=== PATIENT | female | born 1930 | race Caucasian/White ===

== ENCOUNTER → 2017-07-20 | Outpatient (CLI) | payer OTHER ==
[~2017-07-20] MED LIST: ASPI-113 PO; CALCIUM LACTATE PO; CARDIO PLUS PO; CLOP1TAB15 PO; COQ 10 PO; HYDC25 PO; IRON PO; TUNA OMEGA 3 OIL PO; VITAMIN D PO; [UNRECOGNIZED DRUG - OTHER] PO; [UNRECOGNIZED DRUG - REMARK]
[2017-07-20 15:40] LABS: BASO % 0.5 %; BASO ABS # 0.05 K/uL (0-0.2); EOS % 2.4 %; EOS ABS # 0.23 K/uL (0-0.5); HEMATOCRIT 34.1 % (37-47); HEMOGLOBIN 10.7 g/dL (12.0-16.0); IG# 0.02 K/uL (0.00-0.02); LYMPH % 27.1 %; LYMPH ABS # 2.59 K/uL (1.2-3.4); MEAN CELL VOLUME 78.2 fL (80-100); MEAN CORPUSCULAR HEMOGLOBIN 24.5 pg (25-34); MEAN CORPUSCULAR HGB CONC 31.4 g/dl (32-36); MEAN PLATELET VOLUME 8.9 fL (7.4-10.4); MONO % 7.2 %; MONO ABS # 0.69 K/uL (0.11-0.59); NEUT % 62.6 %; NEUT ABS # 5.96 K/uL (1.4-6.5); PLATELET COUNT 398 K/uL (130-400); RED CELL DISTRIBUTION WIDTH SD 46.2 fL (36.4-46.3); WHITE BLOOD COUNT 9.54 K/uL (4.8-10.8)
[2017-07-20 16:28] LABS: ALBUMIN 3.6 gm/dl (3.4-5.0); ALT/SGPT 27 U/L (12-78); AST/SGOT 19 U/L (15-37); BLOOD UREA NITROGEN 18 mg/dl (7-18); CALCIUM 10.2 mg/dl (8.5-10.1); CARBON DIOXIDE 26 mmol/L (21-32); CREATININE 0.98 mg/dl (0.60-1.20); GLUCOSE 93 mg/dl (70-99); POTASSIUM 3.6 mmol/L (3.5-5.1); SODIUM 138 mmol/L (136-145)
[2017-07-20 16:39] LABS: ALKALINE PHOSPHATASE 100 U/L (45-117); TOTAL PROTEIN 7.4 gm/dl (6.4-8.2)
== END ==
LOC: C.LAB1850 14:58
PROVIDERS: ATTEND Nurse Practitioner Adult Health
DX: I10 Essential (primary) hypertension (principal); I48.91 Unspecified atrial fibrillation; R60.0 Localized edema

== ENCOUNTER → 2017-08-03 | Outpatient (CLI) | payer OTHER ==
[2017-08-03 12:16] LABS: BASO % 0.6 %; BASO ABS # 0.04 K/uL (0-0.2); EOS % 2.4 %; EOS ABS # 0.17 K/uL (0-0.5); HEMATOCRIT 34.1 % (37-47); HEMOGLOBIN 10.6 g/dL (12.0-16.0); IG# 0.02 K/uL (0.00-0.02); LYMPH % 29.4 %; LYMPH ABS # 2.04 K/uL (1.2-3.4); MEAN CORPUSCULAR HEMOGLOBIN 24.3 pg (25-34); MEAN CORPUSCULAR HGB CONC 31.1 g/dl (32-36); MEAN PLATELET VOLUME 9.5 fL (7.4-10.4); MONO % 9.2 %; MONO ABS # 0.64 K/uL (0.11-0.59); NEUT % 58.1 %; NEUT ABS # 4.04 K/uL (1.4-6.5); NUCLEATED RED BLOOD CELL ABS 0.02 K/uL (0-0); PLATELET COUNT 399 K/uL (130-400); RED CELL DISTRIBUTION WIDTH CV 16.3 % (11.5-14.5); RED CELL DISTRIBUTION WIDTH SD 46.7 fL (36.4-46.3); WHITE BLOOD COUNT 6.95 K/uL (4.8-10.8)
[2017-08-03 12:28] LABS: BLOOD UREA NITROGEN 16 mg/dl (7-18); CARBON DIOXIDE 31 mmol/L (21-32); CREATININE 0.96 mg/dl (0.60-1.20); GLUCOSE 86 mg/dl (70-99); POTASSIUM 3.7 mmol/L (3.5-5.1); SODIUM 136 mmol/L (136-145)
[2017-08-03 12:32] LABS: TRANSFERRIN 327 mg/dl (200-360)
== END | disposition home or self-care (01) ==
LOC: C.LAB1850 10:06
PROVIDERS: ATTEND Internal Medicine
DX: D64.9 Anemia, unspecified (principal); E83.52 Hypercalcemia; E21.3 Hyperparathyroidism, unspecified

== ENCOUNTER → 2017-09-01 | Outpatient (CLI) | payer OTHER ==
[2017-09-01 14:43] LABS: BASO % 0.5 %; BASO ABS # 0.04 K/uL (0-0.2); EOS % 2.7 %; HEMATOCRIT 34.7 % (37-47); HEMOGLOBIN 10.6 g/dL (12.0-16.0); IG# 0.01 K/uL (0.00-0.02); LYMPH % 26.2 %; LYMPH ABS # 1.93 K/uL (1.2-3.4); MEAN CELL VOLUME 82.2 fL (80-100); MEAN CORPUSCULAR HEMOGLOBIN 25.1 pg (25-34); MEAN CORPUSCULAR HGB CONC 30.5 g/dl (32-36); MEAN PLATELET VOLUME 9.5 fL (7.4-10.4); MONO % 9.5 %; PLATELET COUNT 344 K/uL (130-400); RED CELL DISTRIBUTION WIDTH CV 20.2 % (11.5-14.5); WHITE BLOOD COUNT 7.38 K/uL (4.8-10.8)
[2017-09-01 15:13] LABS: TRANSFERRIN 302 mg/dl (200-360)
== END | disposition home or self-care (01) ==
LOC: C.LAB1850 13:54
PROVIDERS: ATTEND Internal Medicine
DX: R19.5 Other fecal abnormalities (principal)

== ENCOUNTER → 2017-09-15 | Day surgery (SDC) | payer OTHER ==
[2017-09-11 12:47] VITALS: Ht 156.2 cm; Wt 83.2 kg
[~2017-09-15] VITALS: Ht 156.2 cm; Wt 83.2 kg
[~2017-09-15] MED LIST changes: +APIX1TAB3 PO; -ASPI-113 PO; -CALCIUM LACTATE PO; -CARDIO PLUS PO; -CLOP1TAB15 PO; -COQ 10 PO; +DILT-115 PO; -HYDC25 PO; +HYDR25TA4 PO; -IRON PO; +LIDOCAINE HCL 2% 2 ML VIAL (20MG/ML) ONE; +MOME220A INH; +PROPOFOL IV EMULSION 10 MG/ML 20 ML VIAL IV ONE; +SODIUM CHLORIDE 0.9% 500ML 500 ML IV ONE; -TUNA OMEGA 3 OIL PO; -VITAMIN D PO; -[UNRECOGNIZED DRUG - OTHER] PO; -[UNRECOGNIZED DRUG - REMARK]
--- NOTE | 2017-09-15 12:09 | Endo History and Physical ---
History & Physical Date of Service: Sep 15, 2017. Chief Complaint: Anemia Referring Physician: Dr. Redman History of Present Illness 86 yo CF who presents for colonoscopy secondary to anemia. Past Surgical History Hx Cardiac Surgery: No Hx Internal Defibrillator: No Hx Pacemaker: No Hx Abdominal Surgery: Yes (HYSTERECTOMY, HERNIA REPAIR) Hx of Implantable Prosthesis: No Hx Post-Op Nausea and Vomiting: No Hx Cancer Surgery: Yes (BCC FACIAL EXCISION) Hx Thoracic Surgery: No Hx Orthopedic: Yes (LEFT/RT ROMERO, LUMBAR FUSION) Hx Urinary Tract Surgery: No Family History None Social History Smoking Status: Never Smoker Hx Substance Use: No Hx Alcohol Use: Yes (OCCASIONALLY) Allergies Coded Allergies: No Known Allergies (Verified , 09/15/17) Current Medications Reported Home Medications Medications Dose Route/Sig Max Daily Dose Days Date Category Asmanex Twisthaler 120 Me (Mometasone Furoate (Inhalation) 220 Mcg/Inh Aer 1 Puff INH BID 09/11/17 Reported Hctz (Hydrochlorothiazide) 25 Mg Tab 25 Mg PO QAM 09/11/17 Reported Tiazac (Diltiazem HCl) 240 Mg Capcr 240 Mg PO QAM 09/11/17 Reported Eliquis (Apixaban) 5 Mg Tab 5 Mg PO QAM 09/11/17 Reported Vital Signs Weight (Kilograms): 83.18 Height (Feet): 5 Height (Inches): 1.5 Date Time Temp Pulse Resp B/P (MAP) Pulse Ox O2 Delivery O2 Flow Rate FiO2 09/15/17 11:26 36.6 88 20 174/80 (111) 95 Room Air Physical Exam General Appearance: WD/WN, no apparent distress Respiratory/Chest: Auscultation: breath sounds normal Cardiovascular: Heart Auscultation: RRR Abdomen: Bowel Sounds: normal Inspection & Palpation: soft, non-distended, no tenderness, guarding & rebound Assessment and Plan Assessment: 86 yo CF who presents for colonoscopy secondary to anemia. Plan: Proceed with colonoscopy.
--- NOTE | 2017-09-15 12:44 | Discharge Instructions ---
Endoscopy Patient Instructions Date / Procedure(s) Performed Sep 15, 2017. Colonoscopy Allergy Information Coded Allergies: No Known Allergies (Verified , 09/15/17) Discharge Date / Findings Sep 15, 2017. Colon mass s/p biopsies Colon polyp Diverticulosis Internal hemorrhoids Medication Instructions Stopped Medication(s): Eliquis last dose 09/13/17. OK to resume all medications today as prescribed Reported Home Medications Medications Dose Route/Sig Max Daily Dose Days Date Category Asmanex Twisthaler 120 Me (Mometasone Furoate (Inhalation) 220 Mcg/Inh Aer 1 Puff INH BID 09/11/17 Reported Hctz (Hydrochlorothiazide) 25 Mg Tab 25 Mg PO QAM 09/11/17 Reported Tiazac (Diltiazem HCl) 240 Mg Capcr 240 Mg PO QAM 09/11/17 Reported Eliquis (Apixaban) 5 Mg Tab 5 Mg PO QAM 09/11/17 Reported Provider Instructions Activity Restrictions - No exercising or heavy lifting for 24 hours. - Do not drink alcohol the day of the procedure. - Do not drive a car or operate machinery until the day after the procedure. - Do not make any important decisions or sign important papers in 24 hours after the procedure. Following Day: - Return to full activity which may include returning to work/school. Diet Start your diet with liquids and light foods (jello, soup, juice, toast). Then eat your usual diet if not nauseated. Treatment For Common After Affects For mild abdominal pain, bloating, or excessive gas: - Rest - Eat lightly - Lie on right side Follow-Up Information Follow-up with Dr. Redman as scheduled Anesthesia Information What You Should Know You have had a procedure that required some medicine to reduce anxiety and discomfort. This treatment is called moderate sedation. After receiving the treatment, you may be sleepy, but you will be able to breathe on your own. The effects of the treatment may last for several hours. Follow these instructions along with Activity/Diet recommendations noted above: * Do NOT do anything where dizziness or clumsiness would be dangerous. * Rest quietly at home today, then you can be up and about tomorrow. * Have a responsible person stay with you the rest of today. * You may have had an I.V. today. If so, you may take the dressing off later today. Recommendations Call your doctor if: * Trouble breathing * Continuous vomiting for more than 24 hours * Temperature above 101 degrees * Severe abdominal pain or bloating * Pain not relieved by pain medicine ordered * There is increased drainage or redness from any incision * A large amount of rectal bleeding greater than 2-3 tablespoons. (If you had a polyp/s removed or have hemorrhoids, a small amount of blood - from the rectum is to be expected.) * You have any unanswered questions or concerns. IN THE EVENT OF A SERIOUS EMERGENCY, GO TO THE NEAREST EMERGENCY ROOM Your discharge instructions were prepared by provider Ambrosio Slaughter. Patient Instructions Signature Page Desire Daniel Patient (or Guardian) Signature/Date: I have read and understand the instructions given to me by my caregivers. Caregiver/RN/Doctor Signature/Date: The above-named patient and/or guardian has received patient instructions on this date. + Original Patient Signature Page (only) stays with chart. Please make copy for patient.
--- NOTE | 2017-09-15 12:54 | GI REPORT ---
Procedure Date: 09/15/2017 12:15 PM Procedure: Colonoscopy Indications: Iron deficiency anemia secondary to chronic blood loss Medicines: Monitored Anesthesia Care Complications: No immediate complications. Estimated Blood Loss: Estimated blood loss: none. Procedure: Pre-Anesthesia Assessment: - Prior to the procedure, a History and Physical was performed, and patient medications and allergies were reviewed. The patient's tolerance of previous anesthesia was also reviewed. The risks and benefits of the procedure and the sedation options and risks were discussed with the patient. All questions were answered, and informed consent was obtained. Prior Anticoagulants: The patient has taken Eliquis (apixaban), last dose was 2 days prior to procedure. ASA Grade Assessment: II - A patient with mild systemic disease. After reviewing the risks and benefits, the patient was deemed in satisfactory condition to undergo the procedure. After I obtained informed consent, the scope was passed under direct vision. Throughout the procedure, the patient's blood pressure, pulse, and oxygen saturations were monitored continuously. The Scope was introduced through the anus and advanced to the cecum, identified by appendiceal orifice and ileocecal valve. The colonoscopy was performed without difficulty. The patient tolerated the procedure well. The quality of the bowel preparation was good. The terminal ileum, ileocecal valve, appendiceal orifice, and rectum were photographed. Findings: The perianal and digital rectal examinations were normal. An ulcerated non-obstructing medium-sized mass was found in the cecum. The mass was non-circumferential. The mass measured five cm in length. In addition, its diameter measured twenty mm. Oozing was present. This was biopsied with a cold forceps for histology. A 7 mm polyp was found in the cecum. The polyp was sessile. Polypectomy was not attempted due to previously identified malignancy. A 5 mm polyp was found in the sigmoid colon. The polyp was sessile. The polyp was removed with a hot snare. Resection and retrieval were complete. Multiple small-mouthed diverticula were found in the sigmoid colon. Non-bleeding internal hemorrhoids were found during retroflexion. The hemorrhoids were small. 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 Biopsied. - One 7 mm polyp in the cecum. Resection not attempted. - One 5 mm polyp in the sigmoid colon, removed with a hot snare. Resected and retrieved. - Diverticulosis in the sigmoid colon. - Non-bleeding internal hemorrhoids. Recommendation: - Resume previous diet. - Continue present medications. - Await pathology results. - Refer to a surgeon at appointment to be scheduled. - Return to primary care physician as previously scheduled. Ambrosio Slaughter, 09/15/2017 12:53:31 PM This report has been signed electronically. Note Initiated On: 09/15/2017 12:15 PM I attest to the content of the Intraoperative Record and orders documented therein, exceptions below
[2017-09-15 13:20] VITALS: BP 141/95; PULSE 65; O2SAT 95
--- NOTE | 2017-09-15 13:33 | Anesthesiology Progress Note ---
Anesthesia Post Op Note Date & Time Sep 15, 2017 at 13:33 Vital Signs Pain Intensity: 0 Vital Signs Past 12 Hours Date Time Temp Pulse Resp B/P (MAP) Pulse Ox O2 Delivery O2 Flow Rate FiO2 09/15/17 12:47 36 68 18 129/49 (75) 94 Room Air 09/15/17 11:26 36.6 88 20 174/80 (111) 95 Room Air Notes Mental Status: alert / awake / arousable, participated in evaluation Pt Amnestic to Procedure: Yes Nausea / Vomiting: adequately controlled Pain: adequately controlled Airway Patency, RR, SpO2: stable & adequate BP & HR: stable & adequate Hydration State: stable & adequate Anesthetic Complications: no major complications apparent
== END | disposition home or self-care (01) ==
LOC: C.GI 10:12
PROVIDERS: ATTEND Internal Medicine
DX: D64.9 Anemia, unspecified (principal); C18.0 Malignant neoplasm of cecum; D12.0 Benign neoplasm of cecum; D12.5 Benign neoplasm of sigmoid colon; K57.30 Diverticulosis of large intestine without perforation or abscess without bleeding; K64.8 Other hemorrhoids; G47.33 Obstructive sleep apnea (adult) (pediatric); I10 Essential (primary) hypertension; I48.91 Unspecified atrial fibrillation; D50.9 Iron deficiency anemia, unspecified; M19.90 Unspecified osteoarthritis, unspecified site; Z90.710 Acquired absence of both cervix and uterus; Z85.820 Personal history of malignant melanoma of skin; Z96.643 Presence of artificial hip joint, bilateral; Z98.1 Arthrodesis status; Z79.01 Long term (current) use of anticoagulants; Z79.899 Other long term (current) drug therapy

== ENCOUNTER → 2017-09-18 | Outpatient (CLI) | payer OTHER ==
[~2017-09-18] MED LIST changes: -LIDOCAINE HCL 2% 2 ML VIAL (20MG/ML) ONE; +OPTIRAY 320 IV PRN; -PROPOFOL IV EMULSION 10 MG/ML 20 ML VIAL IV ONE; -SODIUM CHLORIDE 0.9% 500ML 500 ML IV ONE
--- NOTE | 2017-09-18 13:45 | DIAGNOSTIC IMAGING REPORT ---
CT OF THE CHEST WITH IV CONTRAST CLINICAL HISTORY: K63.9 Mass of [id number] COMPARISON STUDY: Chest x-ray dated 07/14/2014 TECHNIQUE: Following the IV administration of 94 mL of Optiray-320, CT of the thorax was performed from the thoracic inlet to the lung bases. Images are reviewed in the axial, sagittal, and coronal planes. IV contrast was administered without complication. A dose lowering technique was utilized adhering to the principles of ALARA. CT DOSE: FINDINGS: Thyroid: Imaged portions of the thyroid gland are normal in appearance. Thoracic aorta: There is mild dilatation of the ascending thoracic aorta which measures 4 cm. Pulmonary vasculature: The pulmonary trunk is normal in caliber. There are no central filling defects identified to suggest pulmonary embolus. Note that this examination was not protocoled for the evaluation of pulmonary emboli. HEART: The heart is mildly enlarged. There is no significant pericardial effusion Lungs and pleural spaces: The lungs and pleural spaces are clear. There are no pleural effusions. There are dependent atelectatic changes. There are no suspicious pulmonary masses. Mediastinum: There is a subcarinal lymph node the upper limits of normal in size. There is no evidence of pathologic adenopathy by size criteria. There is a borderline enlarged 11 mm left subpectoral lymph node. Alisha: There is no evidence of pathologic hilar adenopathy Axilla: There is no evidence of pathologic axillary lymphadenopathy Upper abdomen: There are bilateral Bochdalek hernias. There is an 11 mm water attenuation lesion within the liver immediately beneath the dome the diaphragm. This likely represents a cyst Skeletal structures: There are no lytic or blastic osseous lesions. IMPRESSION: 1. Borderline enlarged 11 mm left subpectoral lymph node. 2. No evidence of parenchymal metastasis 3. Mild dilatation of the ascending thoracic aorta which measures 4 cm 4. Bilateral Bochdalek hernias Electronically signed by: Lukasz Davalos M.D. 09/18/2017 1:44 PM Dictated Date/Time: 09/18/2017 1:35 PM
--- NOTE | 2017-09-18 14:00 | DIAGNOSTIC IMAGING REPORT ---
ABD/PELVIS IV AND ORAL CONT CLINICAL HISTORY: 86 years-old Female presenting with K63.9 Mass of cecum. TECHNIQUE: Multidetector CT of the abdomen and pelvis was performed after the administration of oral and intravenous contrast. IV contrast: 94 L of Optiray 320. A dose lowering technique was used consistent with the principles of ALARA (as low as reasonably achievable). COMPARISON: 01/07/2010. CT DOSE (mGy.cm): The estimated cumulative dose is 891.83 mGy.cm. FINDINGS: Senior Integration Architect topogram: Posterior lumbar fusion hardware. Bilateral total hip prostheses. Cardiomegaly. Lung bases: Minimal basilar opacities, likely atelectasis. Normal heart size. Coronary artery and aortic valve calcification. No pericardial or pleural effusion. Liver: Normal morphology. Several small hypodensities are well-defined and indeterminate but likely hepatic cysts or hamartomas. Patent hepatic vasculature. Accessory right hepatic vein noted. Biliary: No intrahepatic or extrahepatic biliary ductal dilatation. Gallbladder contains gallstones. Pancreas: Mild parenchymal atrophy. Spleen: Normal. Adrenal glands: Normal. Kidneys and ureters: Normal. No no hydronephrosis. Distal ureters poorly assessed secondary to extensive streak artifact arising from the bilateral total hip prostheses. Bladder: Grossly normal allowing for extensive streak artifact. Pelvic organs: Incompletely assessed due to streak artifact. The uterus appears absent. Bowel: Scattered diverticula along the descending colon. No pericolonic fat infiltration. Mild stool burden primarily in the cecum. Apparent polypoid 2.6 cm (series 7 image 295) mass in the cecum. There is no intervening gas within this polypoid thickening to suggest feces, though that possibility is not excluded. The appendix is normal. Feces noted in the terminal ileum likely indicating delayed transit. No bowel obstruction. Peritoneal cavity: No free fluid or intraperitoneal gas. Lymph nodes: No enlarged lymph nodes in the abdomen or pelvis. Vasculature: Atherosclerosis of the normal caliber abdominal aorta. IVC patent. Venous stent in the left external iliac vein at the site of prior stenosis. The stent appears patent. A modular component may extend beyond the left inguinal ligament into the left common femoral vein. At this site, there is moderate narrowing (series 7 image 372), which was the prior site of severe narrowing. Abdominal wall: Postsurgical changes in the left inguinal region possibly from prior hernia repair. Musculoskeletal: Postsurgical changes of total hip arthroplasties. Chronic distention of the left iliopsoas bursa. There is also distention of the left trochanteric bursa with synovial thickening consistent with chronic bursitis. Additionally, there is a fluid collection along the inferomedial aspect of the prosthetic hip joint with peripheral calcification, suggesting a chronic postsurgical collection. No significant lucency in the left bony pelvis. Postsurgical changes of posterior lumbar fusion hardware from L3 to L5 with laminectomy defects and an interbody spacer at L4-5. IMPRESSION: 1. Polypoid region in the cecum. This is not contain internal gas to definitively suggest stool though that possibility is not excluded. A neoplastic polyp is the primary concern. No other mass identified. No lymphadenopathy or evidence of disease elsewhere in abdomen or pelvis. 2. Feces in the terminal ileum suggest delayed transit. No bowel obstruction. 3. Patent though narrowed modular left external iliac to left common femoral venous stent. 4. Bilateral total hip arthroplasty. Chronic left iliopsoas bursitis, greater trochanteric bursitis, and periarticular collection. This could represent reactive fluid, particle disease, or, less likely, sequela of prior bleeding or infection. Electronically signed by: Syd Garcia M.D. 09/18/2017 1:58 PM Dictated Date/Time: 09/18/2017 1:38 PM
== END | disposition home or self-care (01) ==
LOC: C.CTS 10:48
PROVIDERS: ATTEND Internal Medicine
DX: K63.9 Disease of intestine, unspecified (principal)

== ENCOUNTER → 2017-10-01 | Outpatient (CLI) | payer OTHER ==
[~2017-10-01] MED LIST changes: +COEN1CAP28 PO; +ERYTTAB PO; +NEOM500T PO; +OMEG10007 PO; -OPTIRAY 320 IV PRN
== END | disposition home or self-care (01) ==
LOC: C.LAB 10:28
PROVIDERS: ATTEND Internal Medicine
DX: N39.0 Urinary tract infection, site not specified (principal)

== ENCOUNTER → 2017-10-05 | Outpatient (CLI) | payer OTHER | END | disposition home or self-care (01) | LOC: C.LAB 08:38 | PROVIDERS: ATTEND Physician Assistant | DX: N39.0 Urinary tract infection, site not specified (principal) ==

== ENCOUNTER 2017-10-07 05:01 | Inpatient (IN) | payer OTHER ==
[2017-09-29 11:33] VITALS: BMI 34.0
--- NOTE | 2017-09-29 12:12 | PAT Medication Instructions ---
Service Date September 29, 2017. Current Home Medication List Apixaban (Eliquis), 5 MG PO QAM Coenzyme Q10 (Ubidecarenone) (Co Q10), 4 CAP PO QAM Diltiazem Hcl Ext Rel (Tiazac), 240 MG PO QAM Erythromycin (Erythromycin), 1 TAB PO UD PRN for DAY BEFORE SURGERY Fish Oil (Mentor-3), 4 CAP PO QAM Hydrochlorothiazide (Hctz), 25 MG PO QAM Mometasone Furoate (Inhalation (Asmanex Twisthaler 120 Me), 1 PUFF INH BID Neomycin Sulfate (Neomycin Sulfate), 1 TAB PO UD PRN for DAY BEFORE SURGERY Medication Instructions For Your Scheduled Surgery -Continue to hold per cardiology's instructions: Apixaban (Eliquis), 5 MG PO QAM -Continue as directed by your surgeon: Erythromycin (Erythromycin), 1 TAB PO UD PRN for DAY BEFORE SURGERY Neomycin Sulfate (Neomycin Sulfate), 1 TAB PO UD PRN for DAY BEFORE SURGERY - Hold the following medications 2 weeks prior to surgery: Coenzyme Q10 (Ubidecarenone) (Co Q10), 4 CAP PO QAM Fish Oil (Mentor-3), 4 CAP PO QAM - Hold the following medications the morning of surgery: Hydrochlorothiazide (Hctz), 25 MG PO QAM - Take the following medications the morning of surgery with a sip of water: Diltiazem Hcl Ext Rel (Tiazac), 240 MG PO QAM Mometasone Furoate (Inhalation (Asmanex Twisthaler 120 Me), 1 PUFF INH BID - Take the following medications as scheduled the night before surgery: Mometasone Furoate (Inhalation (Asmanex Twisthaler 120 Me), 1 PUFF INH BID If you have any questions please call us at [phone] or [phone] or [phone]
[2017-09-29 12:18] LABS: BASO % 0.7 %; BASO ABS # 0.05 K/uL (0-0.2); EOS % 2.8 %; EOS ABS # 0.21 K/uL (0-0.5); HEMATOCRIT 36.5 % (37-47); HEMOGLOBIN 11.4 g/dL (12.0-16.0); IG# 0.01 K/uL (0.00-0.02); LYMPH % 28.2 %; LYMPH ABS # 2.11 K/uL (1.2-3.4); MEAN CELL VOLUME 80.9 fL (80-100); MEAN CORPUSCULAR HEMOGLOBIN 25.3 pg (25-34); MEAN CORPUSCULAR HGB CONC 31.2 g/dl (32-36); MEAN PLATELET VOLUME 9.6 fL (7.4-10.4); MONO % 9.2 %; MONO ABS # 0.69 K/uL (0.11-0.59); NEUT ABS # 4.42 K/uL (1.4-6.5); PLATELET COUNT 384 K/uL (130-400); RED CELL DISTRIBUTION WIDTH SD 53.7 fL (36.4-46.3); WHITE BLOOD COUNT 7.49 K/uL (4.8-10.8)
[2017-09-29 12:28] LABS: PTT PATIENT 26.4 SECONDS (21.0-31.0)
[2017-09-29 12:54] LABS: ALBUMIN 3.7 gm/dl (3.4-5.0); CALCIUM 9.8 mg/dl (8.5-10.1); CREATININE 0.84 mg/dl (0.60-1.20); POTASSIUM 3.8 mmol/L (3.5-5.1)
[2017-09-29 12:57] LABS: TOTAL PROTEIN 7.3 gm/dl (6.4-8.2)
[~2017-10-07] VITALS: Ht 154.9 cm; Wt 81.5 kg
[2017-10-07] VITALS (11 sets, daily range): BP systolic 130–155; BP diastolic 64–97; PULSE 63–89; TEMP 36.6–36.9; O2SAT 91–97; BMI 34.0; BMI 35.0
[2017-10-07] MEDS ORDERED: CEFOXITIN IV 2,000 MG in DEXTROSE 5% 50ML 50 ML IV SCH (06:00)
[2017-10-07] MEDS ORDERED: LACTATED RINGER'S 1000ML 1,000 ML IV SCH (06:00)
[2017-10-07] MEDS ORDERED: GLYCOPYRROLATE INJ 0.2 MG/ML VIAL ONE (06:58)
[2017-10-07] MEDS ORDERED: SUCCINYLCHOLINE CHLORIDE 20 MG/ML 10 ML VIAL IV ONE (06:58)
[2017-10-07] MEDS ORDERED: DEXAMETHASONE SOD INJ 4 MG/ML VIAL ONE (06:58)
[2017-10-07] MEDS ORDERED: PHENYLEPHRINE HCL INJ 10 MG/ML VIAL ONE (06:58)
[2017-10-07] MEDS ORDERED: PROPOFOL IV EMULSION 10 MG/ML 20 ML VIAL ONE (06:58)
[2017-10-07] MEDS ORDERED: ONDANSETRON INJ 2 MG/ML 2 ML VIAL ONE (06:58)
[2017-10-07] MEDS ORDERED: NEOSTIGMINE METHYLSULFATE 5 MG/5 ML SYR ONE (06:58)
[2017-10-07] MEDS ORDERED: EpHEDrine SULFATE INJ 50 MG/ML AMP ONE (06:58)
[2017-10-07] MEDS ORDERED: MIDAZOLAM HCL 1 MG/ML 2ML VIAL ONE (06:58)
[2017-10-07] MEDS ORDERED: FENTANYL CITRATE INJ 50 MCG/1 ML 2 ML VIAL ONE ×3 (06:58→12:22)
[2017-10-07] MEDS ORDERED: LIDOCAINE HCL 2% 2 ML VIAL (20MG/ML) ONE (06:58)
[2017-10-07] MEDS ORDERED: ROCURONIUM BROMIDE 10 MG/ML 5 ML VIAL ONE ×3 (07:05→10:32)
--- NOTE | 2017-10-07 07:09 | History & Physical Bridge Note ---
H&P Re-Evaluation Bridge Note: I have examined the patient, reviewed the History & Physical and in the interval since the performance of the History & Physical I have noted the following changes of clinical significance: No changes noted
[2017-10-07] MEDS ORDERED: PHENYLEPHRINE 100MCG/ML 5ML SYR IV PRN ×2 (07:30→11:00)
[2017-10-07] MEDS ORDERED: HYDROmorphone INJ 2 MG/ML SYR/VIAL IV PRN ×2 (07:30→11:00)
[2017-10-07] MEDS ORDERED: ATROPINE SULFATE 0.1 MG/ML 5ML SYR IV PRN ×2 (07:30→11:00)
[2017-10-07] MEDS ORDERED: ONDANSETRON INJ 2 MG/ML 2 ML VIAL IV PRN ×3 (07:30→12:45)
[2017-10-07] MEDS ORDERED: EpHEDrine SULFATE INJ 50 MG/ML AMP IV PRN ×2 (07:30→11:00)
[2017-10-07] MEDS ORDERED: BUPIVACAINE 0.5 % 5 MG/1 ML MPF 30ML VIAL ONE (07:37)
[2017-10-07] MEDS ORDERED: BUPIVACAINE LIPOSOME 1/3% 266 MG/20 ML VIAL ONE (08:27)
[2017-10-07] MEDS ORDERED: EpHEDrine SULFATE 50MG/5ML SYR ONE (09:53)
[2017-10-07] MEDS ORDERED: ALBUMIN HUMAN 5% 12.5 GM/250 ML VIAL IV ONE (11:50)
--- NOTE | 2017-10-07 12:26 | [facility] Post Operative Brief Note ---
Immediate Operative Summary Operative Date October 07, 2017. Pre-Operative Diagnosis right colon cancer Post-Operative Diagnosis same, adhesions Procedure(s) Performed laparoscopic hand assisted right hemicolectomy; laparoscopic lysis of adhesions, extensive; side to side functional end to end ileocolonic anastomosis Surgeon Farshad Ibrahim DO [employer]ne[employer] Electrician Surgeon(s) ALYSSA Gonzalez Estimated Blood Loss 100cc Findings Consistent with Post-Op Diagnosis dense adhesions, Specimens A) Right hemicolectomy B) ileum Drains None Anesthesia Type General Complication(s) none Disposition Accompanied Pt To Recover: no Disposition: Recovery Room / PACU
[2017-10-07] MEDS ORDERED: MoRPHine SULFATE 4 MG/ML 1 ML CARP\\VIAL IV PRN ×3 (12:45)
--- NOTE | 2017-10-07 12:58 | [facility] Operative Report ---
Operative Report Operative Date October 07, 2017. Pre-Operative Diagnosis right colon cancer Post-Operative Diagnosis Same; adhesions Procedure(s) Performed Laparoscopic hand-assisted right hemicolectomy; laparoscopic lysis of adhesions ; [id number] functional end-to-end ileocolonic anastomosis Surgeon Farshad Ibrahim DO Test Engine Evaluator Surgeon(s) ALYSSA Gonzalez Estimated Blood Loss 100cc Findings Right hemicolectomy performed with medial to lateral approach. Tumor palpable in the cecum. High ligation of the ileocolic vascular bundle. Dense adhesions of the mid and distal ileum in the pelvis. Reentered laparoscopically and extensive lysis of adhesions performed to free ileum. During this portion of the procedure there some damage to the mesentery, therefore an additional section of ileum was excised. Once the adhesions were taken down, [id number] functional end-to-end ileocolonic anastomosis was created with stapler and reinforced with 3-0 silk Lemberts. Mesenteric defect closed with 2-0 Vicryl suture. Anastomosis widely patent at conclusion of procedure. Specimens A) Right hemicolectomy B) ileum Drains None Anesthesia GETA Complication(s) None Disposition Recovery Room / PACU Indications 87-year-old female with newly diagnosed cecal cancer, plan for laparoscopic right hemicolectomy, possible open. The risks of the procedure were discussed, all questions were answered, and the patient agreed to proceed with surgery as planned. Description of Procedure The patient was properly identified, consented, and taken to the operating room where she was placed in the supine position. General endotracheal anesthesia was induced. SCDs and a safety belt were placed. Preoperative antibiotics were administered. A Parker catheter was placed. The patient's abdomen was prepped and draped in the standard sterile fashion. Surgical timeout was performed and all parties were in agreement that this was the correct patient and procedure to be performed and we continued as planned. A vertical midline supraumbilical incision was made with electrocautery and deepened down to the fascia with blunt dissection. The base of the umbilicus was grasped with a Joanna. The Joanna was elevated towards the ceiling and the fascia was incised with a knife. Stay sutures were placed on either side of the midline. Entry into the peritoneum was confirmed. Finger sweep was used to take down omental adhesions to the infraumbilical anterior abdominal wall. The [place] trocar was then placed and the abdomen insufflated with carbon dioxide which the patient tolerated without incident. The laparoscope was inserted and the abdomen inspected. No damage from initial trocar placement was noted. No significant adhesions or other abnormalities were noted. Next, 5 mm ports were then placed in the midline just above the pubic symphysis and in the left lower quadrant. A 5 mm port was later placed in the left upper quadrant. The patient was placed in Trendelenburg position and the rotated towards the left. The small bowel was swept out of the way. Cecum was identified and was in the right upper quadrant, very close to the hepatic flexure. There were some adhesions between the cecum and the transverse colon which were taken down with the harmonic. The cecum was then grasped and elevated towards the abdominal wall exposing the pedicle of the ileocolic artery and vein. The peritoneum just underneath this was incised with electrocautery. Blunt dissection was then used to isolate the vessels along with the use of the harmonic. The vessels were circumferentially dissected. A patel loaded 30 mm endoscopic stapler was then used to divide the ileocolic vein and artery at their base. Hemostasis appeared excellent. We then continued the dissection from a medial to lateral approach dissecting the retroperitoneal structures posteriorly away from the small bowel and colonic mesentery. We continued this dissection until we entered the lesser sac and continued laterally until the colon was nearly free of all adhesions except for the white line of Toldt. We then began dissection of the greater omentum off of the transverse colon mesentery. This was performed with blunt dissection and the harmonic device. The lesser sac was then entered. Once the medial to lateral dissection was completed, we then performed a lateral dissection using electrocautery and the harmonic to take down the white line of Toldt along the right colon. The dissection continued distally to the mid transverse colon, and proximally to the distal ileum. Once this was completed, it appeared that the ileum and colon would reach easily to the midline abdominal wall, and we decided to exteriorize the colon. Laparoscopy was ceased and a midline incision was made around the umbilicus for a length of approximately 7 cm. The wound protector was placed within the wound after the fascia was opened and the colon was exteriorized. The colon reached easily as did the small bowel. A window was created in the mesentery and the transverse colon was divided with a purple loaded 60 mm stapler distal to the hepatic flexure. We attempted to bring the ileum up into the field but it appeared tethered to some adhesions in the pelvis. We attempted to take care of these through her midline incision, however this proved to be very difficult. The mesentery began to tear in certain areas we did not have a significant amount of blood loss, however there were multiple mesenteric defect along the mid ileum. At this point we divided the distal ileum and completed the resection of the mesentery. Tumor was palpable in the cecum. Hemostasis appeared to be good. Specimen was passed off the table, the GelPort was placed and we reentered laparoscopically. Using hand assistance I was able to perform an extensive lysis of adhesions in the pelvis of a majority of the ileum to the area of prior surgery. Some of the adhesions were quite dense. Once this was completed we then exteriorized the small bowel and reexamined it. The bowel appeared viable, there was multiple mesenteric defects for about 20 cm of the ileum, and this was then resected and the mesentery divided with the harmonic device. A bleeding vessel in the mesentery was controlled with [id number] 3-0 silk suture. After this hemostasis appeared excellent. We then performed a [id number] functional end-to-end ileocolonic anastomosis. The wound was draped with blue towels. Enterotomies were created at the corner of the staple line on the antimesenteric border. Sequential fires of a 45 mm purple loaded stapler were then used to perform the anastomosis. The common enterotomy and the prior staple line were closed and excised using a 60 mm purple loaded GATO stapler. The anastomosis appeared to be widely patent and there did not appear to be any leaks. There was good blood flow at the edge of the staple line. The staple line was then reinforced circumferentially with 3- 0 silk GI Lembert sutures. The anastomosis was then allowed to drop back into the abdomen. The abdomen was then irrigated with warm saline. The wound protector was removed and the fascia was closed with a 0 PDS x1. The fascia was then injected with exparel. The wound was irrigated and the incision was then closed with interrupted 3-0 Vicryl deep dermal sutures followed by lauren. The remaining port sites were closed with lauren. Sterile dressings were placed. The patient was extubated in the operating room and taken to the PACU where she recovered without apparent incident. All sponge, instrument, and needle counts were correct. The patient tolerated the procedure well. The colon specimen was sent to Pathology. The physician's loan officer assistant was present and scrubbed for the entire to the case. She was critical in positioning the patient, prepping and draping, retraction and exposure, driving the laparoscope, resection of the colon and small bowel, performance of the anastomosis, closure of the fascia and incisions, and placement of the dressings. I attest to the content of the Intraoperative Record and any orders documented therein. Any exceptions are noted below.
[2017-10-07] MEDS ORDERED: OXYCODONE/ACETAMINOPHEN 5-325 TAB PO PRN ×2 (13:00)
[2017-10-07 13:51] LABS: BASO % 0.1 %; BASO ABS # 0.01 K/uL (0-0.2); HEMATOCRIT 34.4 % (37-47); HEMOGLOBIN 10.8 g/dL (12.0-16.0); IG# 0.01 K/uL (0.00-0.02); LYMPH % 6.1 %; LYMPH ABS # 0.73 K/uL (1.2-3.4); MEAN CELL VOLUME 79.6 fL (80-100); MEAN PLATELET VOLUME 8.9 fL (7.4-10.4); MONO % 9.1 %; MONO ABS # 1.08 K/uL (0.11-0.59); NEUT % 84.6 %; NEUT ABS # 10.09 K/uL (1.4-6.5); PLATELET COUNT 351 K/uL (130-400); RED CELL DISTRIBUTION WIDTH CV 17.7 % (11.5-14.5); RED CELL DISTRIBUTION WIDTH SD 51.9 fL (36.4-46.3); WHITE BLOOD COUNT 11.92 K/uL (4.8-10.8)
--- NOTE | 2017-10-07 13:52 | Anesthesiology Progress Note ---
Anesthesia Post Op Note Date & Time October 07, 2017 at 13:52 Vital Signs Pain Intensity: 0 Vital Signs Past 12 Hours Date Time Temp Pulse Resp B/P (MAP) Pulse Ox O2 Delivery O2 Flow Rate FiO2 10/07/17 13:24 36.5 77 18 164/74 (100) 93 Nasal Cannula 2 10/07/17 13:11 76 18 166/72 100 10/07/17 13:11 76 18 10/07/17 13:11 76 18 10/07/17 13:11 76 18 166/72 100 10/07/17 13:06 78 17 10/07/17 13:06 78 17 10/07/17 13:06 78 17 171/76 100 10/07/17 13:06 78 17 171/76 100 10/07/17 13:01 79 17 10/07/17 13:01 79 17 178/78 100 10/07/17 13:01 79 17 178/78 100 10/07/17 13:01 79 17 10/07/17 12:56 79 19 167/71 100 10/07/17 12:56 79 19 167/71 100 10/07/17 12:56 79 19 10/07/17 12:56 79 19 10/07/17 12:53 156/64 10/07/17 12:53 156/64 10/07/17 12:52 180/66 10/07/17 12:52 180/66 10/07/17 12:51 78 17 98 10/07/17 12:51 78 17 98 10/07/17 12:51 36.0 77 20 180/66 (100) 98 Oxymask 10 10/07/17 12:51 78 17 10/07/17 12:51 78 17 10/07/17 05:55 36.7 63 18 155/69 93 Room Air Notes Mental Status: alert / awake / arousable, participated in evaluation Pt Amnestic to Procedure: Yes Nausea / Vomiting: adequately controlled Pain: adequately controlled Airway Patency, RR, SpO2: stable & adequate BP & HR: stable & adequate Hydration State: stable & adequate Anesthetic Complications: no major complications apparent
[2017-10-07 14:07] LABS: MEAN CORPUSCULAR HGB CONC 31.4 g/dl (32-36)
[2017-10-07 14:21] LABS: CALCIUM 8.8 mg/dl (8.5-10.1); CREATININE 1.07 mg/dl (0.60-1.20); POTASSIUM 3.4 mmol/L (3.5-5.1)
[2017-10-07] MEDS: LACTATED RINGER'S 1000ML 1,000 ML IV SCH ×2 (15:38→22:39)
--- NOTE | 2017-10-07 16:42 | Medical Consult ---
Consultation Date of Consultation: October 07, 2017. Attending Physician: Dmitri Ibrahim DO Reason for Consultation: Medical Management - PAF History of Present Illness Ms. Daniel is an 87 y/o female with PMHx of Anemia, Paroxysmal Atrial Fibrillation, Reactive Airway Disease, and Peripheral Edema who was diagnosed with infiltrative adenocarcinoma and is S/P R Hemicolectomy, Lysis of Adhesions , and End-to-End Ileocolonic anastomosis by Dr. Ibrahim on 10/07. Patient currently reports some nausea and discomfort but states not really pain. She mostly is just fatigued after surgery. She states she has had a work-up for anemia that resulted in findings on colonoscopy. Pre-operatively she was found to have an E. coli UTI which she has been treated with Macrobid. She is a few days from finishing this course but is getting Abx in-house. She states she never had urinary symptoms and still doesn't. She states she can tell when she goes into Atrial Fibrillation. Currently she is NSR. She is prescribed Eliquis 5 mg BID however patient admits that she only takes it once a day. This has been discussed with her by her operation research analyst that she should be on it BID. However, she has been off this medication approx. 2 weeks while working her up for anemia. She should ultimately return to this medication when safe from a surgical standpoint as CHADVasc score 4 however post-operative bleeding more of a risk at this time. Past Medical/Surgical History 1. HTN 2. Peripheral Edema 3. Paroxysmal Atrial Fibrillation 4. Infiltrative Adenocarcinoma S/P Resection 5. S/P Hysterectomy 6. S/P R Hip Arthroplasty Family History Ovarian Cancer Pancreatic Cancer Social History Smoking Status: Never Smoker Smokeless Tobacco Use: No Alcohol Use: none Drug Use: none Marital Status: Occupation Status: retired Allergies Coded Allergies: Lisinopril (Verified Adverse Reaction, Unknown, "Fatique and low pulse", ) Current Inpatient Medications Current Inpatient Medications Medications (Trade) Dose Ordered Sig/Maverick Route Start Time Stop Time Status Last Admin Dose Admin Lactated Ringer's 1,000 ml @ 15 mls/hr Q24H IV 10/07/17 06:00 10/08/17 05:59 10/07/17 06:15 15 MLS/HR Cefoxitin Sodium 2000 mg/Dextrose 60 ml @ 120 mls/hr PREOP IV 10/07/17 06:00 10/08/17 05:59 10/07/17 07:26 120 MLS/HR Lactated Ringer's 1,000 ml @ 125 mls/hr Q8H IV 10/07/17 16:00 11/06/17 15:59 10/07/17 15:38 125 MLS/HR Acetaminophen 100 ml @ 400 mls/hr Q8H IV 10/07/17 16:00 11/06/17 15:59 Morphine Sulfate (MoRPHine SULFATE INJ) 1 mg Q3H PRN IV 10/07/17 12:45 10/21/17 12:44 Morphine Sulfate (MoRPHine SULFATE INJ) 2 mg Q3H PRN IV 10/07/17 12:45 10/21/17 12:44 Morphine Sulfate (MoRPHine SULFATE INJ) 3 mg Q3H PRN IV 10/07/17 12:45 10/21/17 12:44 Ondansetron HCl (Zofran Inj) 4 mg Q6H PRN IV 10/07/17 12:45 11/06/17 12:44 Cefoxitin Sodium 2000 mg/Dextrose 60 ml @ 100 mls/hr Q6H IV 10/07/17 16:00 10/08/17 15:59 Oxycodone/ Acetaminophen (Percocet 5-325mg Tab) 1 tab Q4H PRN PO 10/07/17 13:00 10/21/17 12:59 Future Hold Oxycodone/ Acetaminophen (Percocet 5-325mg Tab) 2 tab Q4H PRN PO 10/07/17 13:00 10/21/17 12:59 Future Hold Diltiazem HCl (TIAzac CAP) 240 mg QAM PO 10/08/17 09:00 11/07/17 08:59 Mometasone Furoate (Asmanex 220MCG Inh) 1 puff BID INH 10/07/17 21:00 11/06/17 20:59 Review of Systems Constitutional: + fatigue, No fever, No chills ENT: No nasal symptoms, No sore throat Respiratory: No cough, No sputum, No shortness of breath Cardiovascular: No chest pain Abdomen: + pain ("discomfort"), + nausea, No vomiting, No diarrhea, No constipation Musculoskeletal: No swelling, No calf pain Genitourinary - Female: No dysuria Hematologic / Lymphatic: No abnormal bleeding/bruising Integumentary: No rash Physical Exam Date Time Temp Pulse Resp B/P (MAP) Pulse Ox O2 Delivery O2 Flow Rate FiO2 10/07/17 15:20 36.9 78 16 139/64 95 Nasal Cannula 2.0 10/07/17 14:41 139/61 10/07/17 14:39 72 18 10/07/17 14:39 72 18 93 10/07/17 14:36 152/59 10/07/17 14:34 74 18 91 10/07/17 14:34 74 18 10/07/17 14:33 146/60 10/07/17 14:31 180/82 10/07/17 14:29 73 17 10/07/17 14:29 73 17 95 10/07/17 14:26 180/81 10/07/17 14:24 73 15 10/07/17 14:24 73 15 95 10/07/17 14:21 171/82 10/07/17 14:19 73 18 94 10/07/17 14:19 73 18 10/07/17 14:16 178/80 10/07/17 14:14 72 17 10/07/17 14:14 71 17 92 10/07/17 14:11 179/73 10/07/17 14:09 72 18 95 10/07/17 14:09 72 18 10/07/17 14:07 173/74 10/07/17 14:06 181/72 10/07/17 14:04 72 19 10/07/17 14:04 72 19 93 10/07/17 14:01 172/76 10/07/17 13:59 73 20 94 10/07/17 13:59 73 20 10/07/17 13:58 172/77 10/07/17 13:57 72 22 10/07/17 13:57 71 22 94 10/07/17 13:56 161/74 10/07/17 13:52 73 11 96 10/07/17 13:52 73 11 10/07/17 13:51 165/65 10/07/17 13:47 72 19 10/07/17 13:47 72 19 91 10/07/17 13:46 161/74 10/07/17 13:42 72 17 91 10/07/17 13:42 72 17 18 13:41 164/77 518 13:37 74 20 95 18 13:37 72 20 10/07/17 13:36 161/72 10/07/17 13:35 183/83 10/07/17 13:32 76 19 10/07/17 13:32 76 19 92 10/07/17 13:27 77 18 10/07/17 13:27 77 18 95 10/07/17 13:26 164/74 10/07/17 13:24 36.5 77 18 164/74 (100) 93 Nasal Cannula 2 10/07/17 13:22 77 16 10/07/17 13:22 77 16 93 10/07/17 13:21 168/68 10/07/17 13:17 76 19 98 10/07/17 13:17 76 19 10/07/17 13:16 172/75 10/07/17 13:12 76 18 100 10/07/17 13:12 76 18 10/07/17 13:11 76 18 166/72 100 10/07/17 13:11 76 18 10/07/17 13:11 76 18 10/07/17 13:11 76 18 166/72 100 10/07/17 13:06 78 17 10/07/17 13:06 78 17 10/07/17 13:06 78 17 171/76 100 10/07/17 13:06 78 17 171/76 100 10/07/17 13:01 79 17 10/07/17 13:01 79 17 178/78 100 10/07/17 13:01 79 17 178/78 100 10/07/17 13:01 79 17 18 12:56 79 19 167/71 100 10/07/17 12:56 79 19 167/71 100 18 12:56 79 19 10/07/17 12:56 79 19 10/07/17 12:53 156/64 10/07/17 12:53 156/64 10/07/17 12:52 180/66 18 12:52 180/66 10/07/17 12:51 78 17 98 10/07/17 12:51 78 17 98 10/07/17 12:51 36.0 77 20 180/66 (100) 98 Oxymask 10 10/07/17 12:51 78 17 10/07/17 12:51 78 17 10/07/17 05:55 36.7 63 18 155/69 93 Room Air General Appearance: WD/WN, no apparent distress Head: normocephalic, atraumatic Eyes: sclerae normal ENT: hearing grossly normal Neck: supple, no JVD, trachea midline Respiratory/Chest: lungs clear, normal breath sounds, no respiratory distress, no accessory muscle use Cardiovascular: regular rate, rhythm, no gallop, no murmur Abdomen/GI: + abnormal bowel sounds (absent bowel sounds; possible faint sounds in LUQ) Extremities/Musculoskelatal: no pedal edema Neurologic/Psych: alert Skin: normal color, warm/dry Laboratory Results Last 24 Hours Test 10/07/17 13:33 White Blood Count 11.92 K/uL Red Blood Count 4.32 M/uL Hemoglobin 10.8 g/dL Hematocrit 34.4 % Mean Corpuscular Volume 79.6 fL Mean Corpuscular Hemoglobin 25.0 pg Mean Corpuscular Hemoglobin Concent 31.4 g/dl Platelet Count 351 K/uL Mean Platelet Volume 8.9 fL Neutrophils (%) (Auto) 84.6 % Lymphocytes (%) (Auto) 6.1 % Monocytes (%) (Auto) 9.1 % Eosinophils (%) (Auto) 0.0 % Basophils (%) (Auto) 0.1 % Neutrophils # (Auto) 10.09 K/uL Lymphocytes # (Auto) 0.73 K/uL Monocytes # (Auto) 1.08 K/uL Eosinophils # (Auto) 0.00 K/uL Basophils # (Auto) 0.01 K/uL RDW Standard Deviation 51.9 fL RDW Coefficient of Variation 17.7 % Immature Granulocyte % (Auto) 0.1 % Immature Granulocyte # (Auto) 0.01 K/uL Sodium Level 137 mmol/L Potassium Level 3.4 mmol/L Chloride Level 105 mmol/L Carbon Dioxide Level 25 mmol/L Anion Gap 7.0 mmol/L Blood Urea Nitrogen 14 mg/dl Creatinine 1.07 mg/dl Est Creatinine Clear Calc Drug Dose 37.4 ml/min Estimated GFR () 54.8 Estimated GFR (Non- 47.3 BUN/Creatinine Ratio 13.2 Random Glucose 170 mg/dl Calcium Level 8.8 mg/dl Assessment & Plan Ms. Daniel is an 87 y/o female with PMHx of Anemia, Paroxysmal Atrial Fibrillation, Reactive Airway Disease, and Peripheral Edema who was diagnosed with infiltrative adenocarcinoma and is S/P R Hemicolectomy, Lysis of Adhesions , and End-to-End Ileocolonic anastomosis by Dr. Ibrahim on 10/07. Infiltrative Adenocarcinoma S/P R Hemicolectomy/Lysis of Adhesions/End-to-End Ileocolonic Anastomosis: - Pain managment, IVF, PT/OT, DVT prophylaxis, and surgical input per primary team Paroxysmal Atrial Fibrillation: Currently NSR - Elquis on hold given surgery - should be resumed when safe to do so from a surgical perspective. CHADVASC is 4 however she is currently in NSR; Could consider Lovenox for coverage per surgery's discretion - She is supposed to take BID dosing however reports only taking Eliquis 5 mg daily - Continue Diltiazem 240 mg daily Peripheral Edema: STABLE - Hold HCTZ until po intake improves and as long as kidney function stable Reactive Airway Disease: - Mometasone Furoate 1 puff BID Pre-Operative UTI: - Was placed on Macrobid as outpatient. Currently receiving Cefoxitin during surgery. - She was asymptomatic and remains - no further intervention necessary unless symptoms develop Elevated BP: - Do not see where this has formally been diagnosed. Was elevated initially but stabilized. Is on Diltiazem and HCTZ Disposition: - Follow labs in AM - Hospitalist service will continue to follow Resident Physician Supervision Note: I was present with Alem SHAH during the history and exam. I discussed the case with the resident and agree with the findings and plan as documented in the note. Any exceptions or clarifications are listed here: 87 y/o F Hx of Anemia, PAF, Asthma, Peripheral Edema - recently diagnosed with infiltrative adenocarcinoma - presented for a scheduled R Hemicolectomy w/End-to -End Ileocolonic anastomosis. She is recovering well post-op - denies excessive pain, nausea/vomiting, CP or SOB. OE AAO x 3 S1,2 R CTAB Abd is nondistended No CCE P: No acute issues in the post-op period She should likely resume Eliquis within a few days and would normally tolerate prophylactic Heparin one day later HR is controlled with Diltiazem Would hold HCTZ pending AM reassessment Med service will follow daily pending DC Documented By: Irvin Rosa
[2017-10-07] MEDS: CEFOXITIN IV 2,000 MG in DEXTROSE 5% 50ML 50 ML IV SCH ×2 (17:11→22:39)
[2017-10-07] MEDS: ACETAMINOPHEN IV 100 ML IV SCH (17:12)
[2017-10-07] MEDS: MOMETASONE FUROATE 14 PUFF/1 INHALER INH SCH (21:00)
[2017-10-08] MEDS: ACETAMINOPHEN IV 100 ML IV SCH ×3 (00:01→15:50)
[2017-10-08 03:16] VITALS: BP 136/76; PULSE 92; TEMP 36.6; O2SAT 96
[2017-10-08] MEDS: CEFOXITIN IV 2,000 MG in DEXTROSE 5% 50ML 50 ML IV SCH ×2 (03:21→08:42)
[2017-10-08 06:01] LABS: HEMOGLOBIN 9.3 g/dL (12.0-16.0); IG# 0.03 K/uL (0.00-0.02); LYMPH % 5.8 %; LYMPH ABS # 0.74 K/uL (1.2-3.4); MEAN CELL VOLUME 79.2 fL (80-100); MEAN CORPUSCULAR HEMOGLOBIN 24.5 pg (25-34); MEAN PLATELET VOLUME 9.4 fL (7.4-10.4); MONO % 11.4 %; MONO ABS # 1.44 K/uL (0.11-0.59); NEUT % 82.6 %; NEUT ABS # 10.44 K/uL (1.4-6.5); PLATELET COUNT 323 K/uL (130-400); RED CELL DISTRIBUTION WIDTH CV 17.6 % (11.5-14.5); RED CELL DISTRIBUTION WIDTH SD 50.5 fL (36.4-46.3); WHITE BLOOD COUNT 12.65 K/uL (4.8-10.8)
[2017-10-08 06:13] LABS: PTT PATIENT 29.3 SECONDS (21.0-31.0)
[2017-10-08 06:32] LABS: CALCIUM 8.6 mg/dl (8.5-10.1); CREATININE 0.82 mg/dl (0.60-1.20); POTASSIUM 4.1 mmol/L (3.5-5.1)
[2017-10-08] MEDS: LACTATED RINGER'S 1000ML 1,000 ML IV SCH ×2 (06:37→16:54)
[2017-10-08 07:30] VITALS: BP 154/76; PULSE 81; TEMP 36.5; O2SAT 96
[2017-10-08] MEDS: DILTIAZEM HCL 120 MG EXT REL CAP PO SCH ×2 (08:42→08:48)
[2017-10-08] MEDS: MOMETASONE FUROATE 14 PUFF/1 INHALER INH SCH ×2 (08:43→20:53)
--- NOTE | 2017-10-08 09:25 | Surgery Progress Note ---
Surgery Progress Note Date of Service October 08, 2017. Subjective 87-year-old female POD#1 Status post laparoscopic right hemicolectomy and lysis of adhesions. Overall doing well, some soreness around incision but overall minimal pain. It has no nausea. Urine output picked up overnight appears to be adequate this morning. Objective Vital Signs: Date Time Temp Pulse Resp B/P (MAP) Pulse Ox O2 Delivery O2 Flow Rate FiO2 10/08/17 07:30 36.5 81 24 154/76 (102) 96 10/08/17 04:00 Nasal Cannula 2.0 10/08/17 03:16 36.6 92 17 136/76 (96) 96 Nasal Cannula 2.0 10/07/17 23:59 36.6 87 16 143/73 (96) 96 Nasal Cannula 2.0 10/07/17 23:59 Nasal Cannula 2.0 10/07/17 20:01 88 19 139/74 (95) 97 2.0 10/07/17 20:00 Nasal Cannula 2.0 10/07/17 19:52 36.9 89 18 130/97 (108) 97 Nasal Cannula 2.0 10/07/17 19:04 89 18 130/97 (108) 95 2.0 10/07/17 18:00 85 19 94 2.0 10/07/17 17:45 82 18 91 2.0 10/07/17 17:30 81 18 91 2.0 10/07/17 17:00 81 17 95 2.0 10/07/17 16:00 82 27 95 2.0 10/07/17 16:00 Nasal Cannula 2.0 10/07/17 15:20 36.9 78 16 139/64 95 Nasal Cannula 2.0 10/07/17 14:41 139/61 10/07/17 14:39 72 18 10/07/17 14:39 72 18 93 10/07/17 14:36 152/59 10/07/17 14:34 74 18 91 10/07/17 14:34 74 18 10/07/17 14:33 146/60 10/07/17 14:31 180/82 10/07/17 14:29 73 17 10/07/17 14:29 73 17 95 10/07/17 14:26 180/81 10/07/17 14:24 73 15 5/9/18 14:24 73 15 95 10/07/17 14:21 171/82 18 14:19 73 18 94 10/07/17 14:19 73 18 10/07/17 14:16 178/80 10/07/17 14:14 72 17 10/07/17 14:14 71 17 92 10/07/17 14:11 179/73 10/07/17 14:09 72 18 95 10/07/17 14:09 72 18 10/07/17 14:07 173/74 10/07/17 14:06 181/72 10/07/17 14:04 72 19 10/07/17 14:04 72 19 93 10/07/17 14:01 172/76 10/07/17 13:59 73 20 94 10/07/17 13:59 73 20 10/07/17 13:58 172/77 10/07/17 13:57 72 22 10/07/17 13:57 71 22 94 10/07/17 13:56 161/74 10/07/17 13:52 73 11 96 10/07/17 13:52 73 11 10/07/17 13:51 165/65 10/07/17 13:47 72 19 10/07/17 13:47 72 19 91 10/07/17 13:46 161/74 10/07/17 13:42 72 17 91 10/07/17 13:42 72 17 10/07/17 13:41 164/77 10/07/17 13:37 74 20 95 10/07/17 13:37 72 20 10/07/17 13:36 161/72 10/07/17 13:35 183/83 10/07/17 13:32 76 19 10/07/17 13:32 76 19 92 10/07/17 13:27 77 18 10/07/17 13:27 77 18 95 10/07/17 13:26 164/74 18 13:24 36.5 77 18 164/74 (100) 93 Nasal Cannula 2 10/07/17 13:22 77 16 10/07/17 13:22 77 16 93 10/07/17 13:21 168/68 10/07/17 13:17 76 19 98 10/07/17 13:17 76 19 10/07/17 13:16 172/75 10/07/17 13:12 76 18 100 10/07/17 13:12 76 18 10/07/17 13:11 76 18 166/72 100 10/07/17 13:11 76 18 10/07/17 13:11 76 18 10/07/17 13:11 76 18 166/72 100 10/07/17 13:06 78 17 10/07/17 13:06 78 17 10/07/17 13:06 78 17 171/76 100 10/07/17 13:06 78 17 171/76 100 10/07/17 13:01 79 17 10/07/17 13:01 79 17 178/78 100 10/07/17 13:01 79 17 178/78 100 10/07/17 13:01 79 17 10/07/17 12:56 79 19 167/71 100 10/07/17 12:56 79 19 167/71 100 10/07/17 12:56 79 19 10/07/17 12:56 79 19 10/07/17 12:53 156/64 10/07/17 12:53 156/64 10/07/17 12:52 180/66 10/07/17 12:52 180/66 10/07/17 12:51 78 17 98 10/07/17 12:51 78 17 98 10/07/17 12:51 36.0 77 20 180/66 (100) 98 Oxymask 10 10/07/17 12:51 78 17 10/07/17 12:51 78 17 General Appearance: WD/WN, no apparent distress Abdomen: normal bowel sounds, non tender, non distended, soft Incision(s): clean, dry, intact, no erythema, no drainage Laboratory Results: Results Past 24 Hours Test 10/07/17 13:33 10/08/17 05:21 Range/Units White Blood Count 11.92 12.65 4.8-10.8 K/uL Red Blood Count 4.32 3.79 4.2-5.4 M/uL Hemoglobin 10.8 9.3 12.0-16.0 g/dL Hematocrit 34.4 30.0 37-47 % Mean Corpuscular Volume 79.6 79.2 80-100 fL Mean Corpuscular Hemoglobin 25.0 24.5 25-34 pg Mean Corpuscular Hemoglobin Concent 31.4 31.0 32-36 g/dl Platelet Count 351 323 130-400 K/uL Mean Platelet Volume 8.9 9.4 7.4-10.4 fL Neutrophils (%) (Auto) 84.6 82.6 % Lymphocytes (%) (Auto) 6.1 5.8 % Monocytes (%) (Auto) 9.1 11.4 % Eosinophils (%) (Auto) 0.0 0.0 % Basophils (%) (Auto) 0.1 0.0 % Neutrophils # (Auto) 10.09 10.44 1.4-6.5 K/uL Lymphocytes # (Auto) 0.73 0.74 1.2-3.4 K/uL Monocytes # (Auto) 1.08 1.44 0.11-0.59 K/uL Eosinophils # (Auto) 0.00 0.00 0-0.5 K/uL Basophils # (Auto) 0.01 0.00 0-0.2 K/uL RDW Standard Deviation 51.9 50.5 36.4-46.3 fL RDW Coefficient of Variation 17.7 17.6 11.5-14.5 % Immature Granulocyte % (Auto) 0.1 0.2 % Immature Granulocyte # (Auto) 0.01 0.03 0.00-0.02 K/uL Sodium Level 137 135 136-145 mmol/L Potassium Level 3.4 4.1 3.5-5.1 mmol/L Chloride Level 105 106 98-107 mmol/L Carbon Dioxide Level 25 26 21-32 mmol/L Anion Gap 7.0 3.0 3-11 mmol/L Blood Urea Nitrogen 14 13 7-18 mg/dl Creatinine 1.07 0.82 0.60-1.20 mg/dl Est Creatinine Clear Calc Drug Dose 37.4 49.3 ml/min Estimated GFR () 54.8 75.6 Estimated GFR (Non- 47.3 65.3 BUN/Creatinine Ratio 13.2 15.2 10-20 Random Glucose 170 123 70-99 mg/dl Calcium Level 8.8 8.6 8.5-10.1 mg/dl Activated Partial Thromboplast Time 29.3 21.0-31.0 SECONDS Partial Thromboplastin Ratio 1.1 Chemistry Specimen Hemolysis Assessment & Plan POD#1 laparoscopic right hemicolectomy, doing well Advance to clear liquid diet Start Lovenox 30 b.i.d. Ambulation, IS, out of bed to chair CHARLES Parker Decrease IV fluids to 80 cc/hour if meets due to void and tolerates clear liquids Possible transfer to floor with remote tele if doing well later today Possible advance to full liquids if tolerates clear liquids later this afternoon
[2017-10-08 10:39] VITALS: Ht 154.9 cm; Wt 81.5 kg
--- NOTE | 2017-10-08 11:05 | Hospitalist Progress Note ---
Hospitalist Progress Note Date of Service October 08, 2017. (Ros Murdock ., HERIC) Subjective Pt evaluation today including: conversation w/ patient, physical exam, chart review, lab review, review of inpatient medication list Pain: Minimal abdominal tenderness PO Intake: Tolerating clear liquid diet Voiding: ovalle catheter in place Patient reports feeling well. She is tolerating a clear liquid diet. Ovalle catheter currently in place but will be removed this morning by nursing. The patient denies any abdominal pain unless her abdomen is being palpated, which she states only causes some soreness. She denies nausea today. The patient denies fevers, chills, sweats, chest pain, palpitations, claudication, cough, wheezing, shortness of breath, nausea, vomiting, dysuria, hematuria, urinary retention, paralysis, weakness, numbness and tingling. Additional Comments: See HPI for pertinent positives and negatives. All other systems reviewed and negative. (Ros Murdock ., PA-C) Objective Vital Signs Date Time Temp Pulse Resp B/P (MAP) Pulse Ox O2 Delivery O2 Flow Rate FiO2 10/08/17 07:30 36.5 81 24 154/76 (102) 96 10/08/17 04:00 Nasal Cannula 2.0 10/08/17 03:16 36.6 92 17 136/76 (96) 96 Nasal Cannula 2.0 10/07/17 23:59 36.6 87 16 143/73 (96) 96 Nasal Cannula 2.0 10/07/17 23:59 Nasal Cannula 2.0 10/07/17 20:01 88 19 139/74 (95) 97 2.0 10/07/17 20:00 Nasal Cannula 2.0 10/07/17 19:52 36.9 89 18 130/97 (108) 97 Nasal Cannula 2.0 10/07/17 19:04 89 18 130/97 (108) 95 2.0 10/07/17 18:00 85 19 94 2.0 10/07/17 17:45 82 18 91 2.0 10/07/17 17:30 81 18 91 2.0 10/07/17 17:00 81 17 95 2.0 10/07/17 16:00 82 27 95 2.0 10/07/17 16:00 Nasal Cannula 2.0 10/07/17 15:20 36.9 78 16 139/64 95 Nasal Cannula 2.0 10/07/17 14:41 139/61 10/07/17 14:39 72 18 10/07/17 14:39 72 18 93 10/07/17 14:36 152/59 10/07/17 14:34 74 18 91 10/07/17 14:34 74 18 10/07/17 14:33 146/60 10/07/17 14:31 180/82 10/07/17 14:29 73 17 10/07/17 14:29 73 17 95 10/07/17 14:26 180/81 10/07/17 14:24 73 15 10/07/17 14:24 73 15 95 10/07/17 14:21 171/82 10/07/17 14:19 73 18 94 10/07/17 14:19 73 18 10/07/17 14:16 178/80 10/07/17 14:14 72 17 10/07/17 14:14 71 17 92 10/07/17 14:11 179/73 10/07/17 14:09 72 18 95 10/07/17 14:09 72 18 10/07/17 14:07 173/74 10/07/17 14:06 181/72 10/07/17 14:04 72 19 10/07/17 14:04 72 19 93 10/07/17 14:01 172/76 10/07/17 13:59 73 20 94 10/07/17 13:59 73 20 10/07/17 13:58 172/77 10/07/17 13:57 72 22 10/07/17 13:57 71 22 94 10/07/17 13:56 161/74 10/07/17 13:52 73 11 96 10/07/17 13:52 73 11 10/07/17 13:51 165/65 10/07/17 13:47 72 19 10/07/17 13:47 72 19 91 10/07/17 13:46 161/74 10/07/17 13:42 72 17 91 18 13:42 72 17 10/07/17 13:41 164/77 10/07/17 13:37 74 20 95 10/07/17 13:37 72 20 10/07/17 13:36 161/72 5/9/18 13:35 183/83 10/07/17 13:32 76 19 10/07/17 13:32 76 19 92 10/07/17 13:27 77 18 10/07/17 13:27 77 18 95 10/07/17 13:26 164/74 10/07/17 13:24 36.5 77 18 164/74 (100) 93 Nasal Cannula 2 10/07/17 13:22 77 16 10/07/17 13:22 77 16 93 10/07/17 13:21 168/68 10/07/17 13:17 76 19 98 10/07/17 13:17 76 19 10/07/17 13:16 172/75 10/07/17 13:12 76 18 100 10/07/17 13:12 76 18 10/07/17 13:11 76 18 166/72 100 10/07/17 13:11 76 18 10/07/17 13:11 76 18 10/07/17 13:11 76 18 166/72 100 10/07/17 13:06 78 17 10/07/17 13:06 78 17 10/07/17 13:06 78 17 171/76 100 10/07/17 13:06 78 17 171/76 100 10/07/17 13:01 79 17 10/07/17 13:01 79 17 178/78 100 10/07/17 13:01 79 17 178/78 100 10/07/17 13:01 79 17 10/07/17 12:56 79 19 167/71 100 10/07/17 12:56 79 19 167/71 100 10/07/17 12:56 79 19 10/07/17 12:56 79 19 10/07/17 12:53 156/64 10/07/17 12:53 156/64 10/07/17 12:52 180/66 10/07/17 12:52 180/66 10/07/17 12:51 78 17 98 10/07/17 12:51 78 17 98 10/07/17 12:51 36.0 77 20 180/66 (100) 98 Oxymask 10 10/07/17 12:51 78 17 10/07/17 12:51 78 17 (Ros Murdock, PA-C) Physical Exam Notes: General appearance: +Obese. Well-developed, well-nourished, no apparent distress Head: Normocephalic, atraumatic Eyes: Normal inspection, PERRL, EOMI ENT: Normal ENT inspection, hearing grossly normal, pharynx normal Neck: Supple, no JVD, trachea midline Respiratory/Chest: Lungs clear to auscultation, normal breath sounds, no respiratory distress Cardiovascular: +Systolic murmur. Regular rate & rhythm, no gallop Abdomen/GI: +Incision dressed, clean and dry. Mild diffuse TTP. Hypoactive bowel sounds. Soft Extremities/Musculoskeletal: +Trace pitting edema. Normal inspection, no calf tenderness Neurological/Psych: Alert, normal mood/affect, oriented x 3 Skin: Normal color, warm/dry, no rash (Ros Murdock, JEFFERSON) Laboratory Results Last 24 Hours Test 10/07/17 13:33 10/08/17 05:21 White Blood Count 11.92 K/uL 12.65 K/uL Red Blood Count 4.32 M/uL 3.79 M/uL Hemoglobin 10.8 g/dL 9.3 g/dL Hematocrit 34.4 % 30.0 % Mean Corpuscular Volume 79.6 fL 79.2 fL Mean Corpuscular Hemoglobin 25.0 pg 24.5 pg Mean Corpuscular Hemoglobin Concent 31.4 g/dl 31.0 g/dl Platelet Count 351 K/uL 323 K/uL Mean Platelet Volume 8.9 fL 9.4 fL Neutrophils (%) (Auto) 84.6 % 82.6 % Lymphocytes (%) (Auto) 6.1 % 5.8 % Monocytes (%) (Auto) 9.1 % 11.4 % Eosinophils (%) (Auto) 0.0 % 0.0 % Basophils (%) (Auto) 0.1 % 0.0 % Neutrophils # (Auto) 10.09 K/uL 10.44 K/uL Lymphocytes # (Auto) 0.73 K/uL 0.74 K/uL Monocytes # (Auto) 1.08 K/uL 1.44 K/uL Eosinophils # (Auto) 0.00 K/uL 0.00 K/uL Basophils # (Auto) 0.01 K/uL 0.00 K/uL RDW Standard Deviation 51.9 fL 50.5 fL RDW Coefficient of Variation 17.7 % 17.6 % Immature Granulocyte % (Auto) 0.1 % 0.2 % Immature Granulocyte # (Auto) 0.01 K/uL 0.03 K/uL Sodium Level 137 mmol/L 135 mmol/L Potassium Level 3.4 mmol/L 4.1 mmol/L Chloride Level 105 mmol/L 106 mmol/L Carbon Dioxide Level 25 mmol/L 26 mmol/L Anion Gap 7.0 mmol/L 3.0 mmol/L Blood Urea Nitrogen 14 mg/dl 13 mg/dl Creatinine 1.07 mg/dl 0.82 mg/dl Est Creatinine Clear Calc Drug Dose 37.4 ml/min 49.3 ml/min Estimated GFR () 54.8 75.6 Estimated GFR (Non- 47.3 65.3 BUN/Creatinine Ratio 13.2 15.2 Random Glucose 170 mg/dl 123 mg/dl Calcium Level 8.8 mg/dl 8.6 mg/dl Activated Partial Thromboplast Time 29.3 SECONDS Partial Thromboplastin Ratio 1.1 Chemistry Specimen Hemolysis (Ros Murdock, PA-C) Assessment and Plan 87 y/o female with a history of HTN, Anemia, Paroxysmal Atrial Fibrillation, Reactive Airway Disease, and Peripheral Edema who was diagnosed with infiltrative adenocarcinoma and presents S/P R Hemicolectomy, Lysis of Adhesions , and End-to-End Ileocolonic anastomosis by Dr. Ibrahim on 10/07 for medical management. Infiltrative Adenocarcinoma S/P R Hemicolectomy/Lysis of Adhesions/End-to-End Ileocolonic Anastomosis--POD #1 - Pain management, IVF, PT/OT, DVT prophylaxis, and surgical input per primary team - Lovenox 30 mg SC BID for DVT ppx per primary. Recommend restarting Eliquis when ok with surgery - Pain well controlled, AVSS - On clear liquid diet, tolerating so far. To advance to full liquids later today if continues to tolerate - Ovalle d/c'd Paroxysmal Atrial Fibrillation--stable, currently in SR - Pt monitored on tele and has remained in SR with HR 70s-90s - Eliquis on hold given surgery - should be resumed when safe to do so from a surgical perspective - Continue Diltiazem 240 mg daily Peripheral Edema, HTN--stable, edema improving per pt - Will continue to hold HCTZ for now due to IVF, pt just started clears around 10-11 this morning - Decrease LR to 75 cc/hr - Continue diltiazem as above Reactive Airway Disease--stable - Mometasone Furoate 1 puff BID Pre-Operative UTI--stable, denies urinary symptoms - Was placed on Macrobid as outpatient. Currently receiving Cefoxitin during surgery. Does not require further abx Thank you for this consultation. We will continue to follow. (Ros Murdock ., PA-C) Supervising Note Dr. Pete I performed a history and physical examination on the patient. I reviewed above note and agree with it. I discussed plan with APC and patient. During my face to face encounter with the patient, I answered all of the patient's questions. Will continue to hold eliquis until surgery states ok. Will monitor CBC. (Chris Pete M.D.)
[2017-10-08 11:16] VITALS: BP 134/71; PULSE 84; TEMP 36.6; O2SAT 96
[2017-10-08 15:45] VITALS: BP 156/65; PULSE 69; TEMP 36.6; O2SAT 93
[2017-10-08] MEDS: ENOXAPARIN 30 MG/0.3 ML SYR SQ SCH ×2 (15:50→20:52)
[2017-10-08 19:52] VITALS: BP 125/52; PULSE 65; TEMP 36.6; O2SAT 92
[2017-10-08 23:43] VITALS: BP 142/55; PULSE 65; TEMP 37.1; O2SAT 94
[2017-10-09] VITALS (7 sets, daily range): BP systolic 116–146; BP diastolic 51–74; PULSE 60–68; TEMP 36.4–36.9; O2SAT 91–95
[2017-10-09] MEDS: ACETAMINOPHEN IV 100 ML IV SCH ×2 (00:09→08:07)
[2017-10-09 06:02] LABS: BASO % 0.2 %; BASO ABS # 0.02 K/uL (0-0.2); EOS % 0.2 %; EOS ABS # 0.02 K/uL (0-0.5); HEMATOCRIT 25.5 % (37-47); IG# 0.03 K/uL (0.00-0.02); LYMPH % 13.6 %; LYMPH ABS # 1.55 K/uL (1.2-3.4); MEAN CELL VOLUME 80.4 fL (80-100); MEAN CORPUSCULAR HEMOGLOBIN 25.2 pg (25-34); MEAN CORPUSCULAR HGB CONC 31.4 g/dl (32-36); MEAN PLATELET VOLUME 9.4 fL (7.4-10.4); MONO % 8.9 %; MONO ABS # 1.01 K/uL (0.11-0.59); NEUT % 76.8 %; NEUT ABS # 8.77 K/uL (1.4-6.5); PLATELET COUNT 291 K/uL (130-400); RED CELL DISTRIBUTION WIDTH CV 17.9 % (11.5-14.5); RED CELL DISTRIBUTION WIDTH SD 53.1 fL (36.4-46.3)
[2017-10-09 06:14] LABS: PTT PATIENT 32.2 SECONDS (21.0-31.0)
[2017-10-09 06:37] LABS: CALCIUM 8.4 mg/dl (8.5-10.1); CREATININE 0.69 mg/dl (0.60-1.20); POTASSIUM 3.9 mmol/L (3.5-5.1)
[2017-10-09] MEDS: LACTATED RINGER'S 1000ML 1,000 ML IV SCH (08:07)
[2017-10-09] MEDS: DILTIAZEM HCL 120 MG EXT REL CAP PO SCH (08:08)
[2017-10-09] MEDS: MOMETASONE FUROATE 14 PUFF/1 INHALER INH SCH ×2 (08:08→21:00)
--- NOTE | 2017-10-09 10:12 | Hospitalist Progress Note ---
Hospitalist Progress Note Date of Service October 09, 2017. (Ros Murdock ., ALYSSA-C) Subjective Pt evaluation today including: conversation w/ patient, physical exam, chart review, lab review, conversation w/ security and privacy consultant (spoke with surgery (primary team )), review of inpatient medication list Pain: None PO Intake: Tolerating clear liquid diet Voiding: no voiding problems The patient reports feeling well. She denies any pain currently. She has been ambulating in the hallway without much difficulty. She does have some dyspnea on exertion, but she states this is normal for her and about the same as it was before surgery. She is now voiding well on her own. She denies passing any gas. She is tolerating her clear liquid diet well and ate 100% of her breakfast. The patient denies fevers, chills, sweats, chest pain, palpitations , claudication, cough, wheezing, nausea, vomiting, abdominal pain, dysuria, hematuria, urinary retention, paralysis, weakness, numbness and tingling. Additional Comments: See HPI for pertinent positives and negatives. All other systems reviewed and negative. (Ros Murdock ., ALYSSA-C) Objective Vital Signs Date Time Temp Pulse Resp B/P (MAP) Pulse Ox O2 Delivery O2 Flow Rate FiO2 10/09/17 07:07 36.8 63 18 144/51 (82) 91 Room Air 10/09/17 04:19 36.9 63 19 116/57 (76) 95 Nasal Cannula 2.0 10/09/17 04:00 Room Air 10/08/17 23:59 Room Air 10/08/17 23:43 37.1 65 18 142/55 (84) 94 Nasal Cannula 2.0 10/08/17 20:00 Room Air 10/08/17 19:52 36.6 65 18 125/52 (76) 92 Room Air 10/08/17 16:00 Room Air 10/08/17 15:45 36.6 69 20 156/65 (95) 93 Nasal Cannula 2.0 10/08/17 12:00 Room Air 10/08/17 11:16 36.6 84 18 134/71 (92) 96 (Ros Murdock ., PA-C) Physical Exam Notes: General appearance: +Obese. Well-developed, well-nourished, no apparent distress Head: Normocephalic, atraumatic Eyes: Normal inspection, PERRL, EOMI ENT: Normal ENT inspection, hearing grossly normal, pharynx normal Neck: Supple, no JVD, trachea midline Respiratory/Chest: Lungs clear to auscultation, normal breath sounds, no respiratory distress Cardiovascular: +Systolic murmur. Regular rate & rhythm, no gallop Abdomen/GI: +Incision dressed, clean and dry. Very mild diffuse TTP. Normal bowel sounds, soft Extremities/Musculoskeletal: +Trace pitting edema. Normal inspection, no calf tenderness Neurological/Psych: Alert, normal mood/affect, oriented x 3 Skin: Normal color, warm/dry, no rash (Ros Murdock ., [place]) Laboratory Results Last 24 Hours Test 10/09/17 05:22 White Blood Count 11.40 K/uL Red Blood Count 3.17 M/uL Hemoglobin 8.0 g/dL Hematocrit 25.5 % Mean Corpuscular Volume 80.4 fL Mean Corpuscular Hemoglobin 25.2 pg Mean Corpuscular Hemoglobin Concent 31.4 g/dl Platelet Count 291 K/uL Mean Platelet Volume 9.4 fL Neutrophils (%) (Auto) 76.8 % Lymphocytes (%) (Auto) 13.6 % Monocytes (%) (Auto) 8.9 % Eosinophils (%) (Auto) 0.2 % Basophils (%) (Auto) 0.2 % Neutrophils # (Auto) 8.77 K/uL Lymphocytes # (Auto) 1.55 K/uL Monocytes # (Auto) 1.01 K/uL Eosinophils # (Auto) 0.02 K/uL Basophils # (Auto) 0.02 K/uL RDW Standard Deviation 53.1 fL RDW Coefficient of Variation 17.9 % Immature Granulocyte % (Auto) 0.3 % Immature Granulocyte # (Auto) 0.03 K/uL Red Blood Cell Morphology Unremarkable Activated Partial Thromboplast Time 32.2 SECONDS Partial Thromboplastin Ratio 1.2 Sodium Level 137 mmol/L Potassium Level 3.9 mmol/L Chloride Level 106 mmol/L Carbon Dioxide Level 28 mmol/L Anion Gap 3.0 mmol/L Blood Urea Nitrogen 8 mg/dl Creatinine 0.69 mg/dl Est Creatinine Clear Calc Drug Dose 58.2 ml/min Estimated GFR () 92.0 Estimated GFR (Non- 79.4 BUN/Creatinine Ratio 11.9 Random Glucose 95 mg/dl Calcium Level 8.4 mg/dl (Ros Murdock ., PA-C) Assessment and Plan 87 y/o female with a history of HTN, Anemia, Paroxysmal Atrial Fibrillation, Reactive Airway Disease, and Peripheral Edema who was diagnosed with infiltrative adenocarcinoma and presents S/P R Hemicolectomy, Lysis of Adhesions , and End-to-End Ileocolonic anastomosis by Dr. Ibrahim on 10/07 for medical management. Infiltrative Adenocarcinoma S/P R Hemicolectomy/Lysis of Adhesions/End-to-End Ileocolonic Anastomosis--POD #2 - Pain management, IVF, PT/OT, DVT prophylaxis, and surgical input per primary team - Lovenox 30 mg SC BID for DVT ppx per primary. Recommend restarting Eliquis when ok with surgery - Pain well controlled, AVSS - Spoke with April from surgery. Pt voiding well, tolerating clear liquids. Ok to advance to full liquids - D/C IVF as eating adequately PO Acute blood loss anemia in postop setting -Baseline Hgb 10-11 -Hgb 8.0 on 10/09, down from 9.3 -Recheck H&H at 1200, continue to monitor Paroxysmal Atrial Fibrillation--stable, currently in SR - Pt monitored on tele and has remained in SR with HR 50s-70s. Stable to transfer to med/surg - Eliquis on hold given surgery - should be resumed when safe to do so from a surgical perspective - Continue Diltiazem 240 mg daily Peripheral Edema, HTN--stable, edema improving per pt - D/C IVF as above - Restart HCTZ 25 mg PO qd - Continue diltiazem as above Reactive Airway Disease--stable - Mometasone Furoate 1 puff BID Pre-Operative UTI--stable, denies urinary symptoms - Was placed on Macrobid as outpatient. Currently receiving Cefoxitin during surgery. Does not require further abx Thank you for this consultation. We will continue to follow. (Ros Murdock ., PA-C) Supervising Note Dr. Pete I performed a history and physical examination on the patient. I reviewed above note and agree with it. I discussed plan with APC and patient. During my face to face encounter with the patient, I answered all of the patient's questions. will monitor her hemoglobin. Patient currently tolerating her diet. (Chris Pete M.D.)
[2017-10-09] MEDS: ENOXAPARIN 30 MG/0.3 ML SYR SQ SCH ×3 (10:34→21:34)
--- NOTE | 2017-10-09 11:55 | Surgery Progress Note ---
Surgery Progress Note Date of Service October 09, 2017. Subjective 87-year-old female POD#2 Status post laparoscopic right hemicolectomy and lysis of adhesions. Overall doing well, minimal pain. Denies nausea or bloating, denies flatus or bowel movement. Voiding without catheter. Ambulating, tolerating liquid diet. Objective Vital Signs: Date Time Temp Pulse Resp B/P (MAP) Pulse Ox O2 Delivery O2 Flow Rate FiO2 10/09/17 08:00 Room Air 10/09/17 07:07 36.8 63 18 144/51 (82) 91 Room Air 10/09/17 04:19 36.9 63 19 116/57 (76) 95 Nasal Cannula 2.0 10/09/17 04:00 Room Air 10/08/17 23:59 Room Air 10/08/17 23:43 37.1 65 18 142/55 (84) 94 Nasal Cannula 2.0 10/08/17 20:00 Room Air 10/08/17 19:52 36.6 65 18 125/52 (76) 92 Room Air 10/08/17 16:00 Room Air 10/08/17 15:45 36.6 69 20 156/65 (95) 93 Nasal Cannula 2.0 10/08/17 12:00 Room Air General Appearance: WD/WN, no apparent distress Abdomen: normal bowel sounds, non tender, non distended, soft, no organomegaly , no pulsatile mass Incision(s): clean, dry, intact, no erythema, no drainage Laboratory Results: Results Past 24 Hours Test 10/09/17 05:22 Range/Units White Blood Count 11.40 4.8-10.8 K/uL Red Blood Count 3.17 4.2-5.4 M/uL Hemoglobin 8.0 12.0-16.0 g/dL Hematocrit 25.5 37-47 % Mean Corpuscular Volume 80.4 80-100 fL Mean Corpuscular Hemoglobin 25.2 25-34 pg Mean Corpuscular Hemoglobin Concent 31.4 32-36 g/dl Platelet Count 291 130-400 K/uL Mean Platelet Volume 9.4 7.4-10.4 fL Neutrophils (%) (Auto) 76.8 % Lymphocytes (%) (Auto) 13.6 % Monocytes (%) (Auto) 8.9 % Eosinophils (%) (Auto) 0.2 % Basophils (%) (Auto) 0.2 % Neutrophils # (Auto) 8.77 1.4-6.5 K/uL Lymphocytes # (Auto) 1.55 1.2-3.4 K/uL Monocytes # (Auto) 1.01 0.11-0.59 K/uL Eosinophils # (Auto) 0.02 0-0.5 K/uL Basophils # (Auto) 0.02 0-0.2 K/uL RDW Standard Deviation 53.1 36.4-46.3 fL RDW Coefficient of Variation 17.9 11.5-14.5 % Immature Granulocyte % (Auto) 0.3 % Immature Granulocyte # (Auto) 0.03 0.00-0.02 K/uL Red Blood Cell Morphology Unremarkable Activated Partial Thromboplast Time 32.2 21.0-31.0 SECONDS Partial Thromboplastin Ratio 1.2 Sodium Level 137 136-145 mmol/L Potassium Level 3.9 3.5-5.1 mmol/L Chloride Level 106 98-107 mmol/L Carbon Dioxide Level 28 21-32 mmol/L Anion Gap 3.0 3-11 mmol/L Blood Urea Nitrogen 8 7-18 mg/dl Creatinine 0.69 0.60-1.20 mg/dl Est Creatinine Clear Calc Drug Dose 58.2 ml/min Estimated GFR () 92.0 Estimated GFR (Non- 79.4 BUN/Creatinine Ratio 11.9 10-20 Random Glucose 95 70-99 mg/dl Calcium Level 8.4 8.5-10.1 mg/dl Assessment & Plan POD#2 laparoscopic right hemicolectomy, doing well. Drop in hematocrit likely delusional as her BUN/creatinine are decreasing and blood pressure and heart rate are normal Advance to full liquid diet, may advance to low residual diet if tolerated Patient may shower Continue Lovenox 30 b.i.d., hold Eliquis for now Ambulation, IS, out of bed to chair Hep-Lock IV, restart hydrochlorothiazide transfer to floor Possible discharge over the weekend, Dr. Khan will be covering
[2017-10-09] MEDS ORDERED: OXYCODONE HCL IR 5 MG TAB (IMMEDIATE RELEASE) PO PRN ×2 (12:15)
[2017-10-09 12:17] LABS: HEMATOCRIT 27.4 % (37-47); HEMOGLOBIN 8.6 g/dL (12.0-16.0)
[2017-10-09] MEDS: KETOROLAC TROMETHAMINE 15 MG/ML VIAL IV SCH ×2 (12:24→17:38)
[2017-10-09] MEDS: HYDROCHLOROTHIAZIDE 25 MG TAB PO SCH (12:53)
[2017-10-09] MEDS: ACETAMINOPHEN 500 MG TAB PO SCH ×2 (14:17→21:33)
[2017-10-10] MEDS: KETOROLAC TROMETHAMINE 15 MG/ML VIAL IV SCH ×5 (00:18→23:31)
[2017-10-10] MEDS: ACETAMINOPHEN 500 MG TAB PO SCH ×3 (05:42→21:25)
[2017-10-10 06:38] LABS: BASO % 0.2 %; BASO ABS # 0.02 K/uL (0-0.2); EOS % 3.1 %; EOS ABS # 0.28 K/uL (0-0.5); HEMATOCRIT 23.6 % (37-47); HEMOGLOBIN 7.2 g/dL (12.0-16.0); IG# 0.03 K/uL (0.00-0.02); LYMPH % 17.2 %; LYMPH ABS # 1.53 K/uL (1.2-3.4); MEAN CELL VOLUME 80.3 fL (80-100); MEAN CORPUSCULAR HEMOGLOBIN 24.5 pg (25-34); MEAN CORPUSCULAR HGB CONC 30.5 g/dl (32-36); MEAN PLATELET VOLUME 8.9 fL (7.4-10.4); MONO % 7.1 %; MONO ABS # 0.63 K/uL (0.11-0.59); NEUT % 72.1 %; NEUT ABS # 6.43 K/uL (1.4-6.5); PLATELET COUNT 273 K/uL (130-400); RED CELL DISTRIBUTION WIDTH CV 17.9 % (11.5-14.5); RED CELL DISTRIBUTION WIDTH SD 52.9 fL (36.4-46.3); WHITE BLOOD COUNT 8.92 K/uL (4.8-10.8)
[2017-10-10 06:44] LABS: PTT PATIENT 32.4 SECONDS (21.0-31.0)
[2017-10-10 07:00] LABS: CALCIUM 8.6 mg/dl (8.5-10.1); CREATININE 0.79 mg/dl (0.60-1.20); POTASSIUM 3.5 mmol/L (3.5-5.1)
[2017-10-10 07:35] VITALS: BP 122/69; PULSE 57; TEMP 36.5; O2SAT 92
[2017-10-10] MEDS ORDERED: HYDROCHLOROTHIAZIDE 25 MG TAB PO SCH (09:00)
[2017-10-10] MEDS: MOMETASONE FUROATE 14 PUFF/1 INHALER INH SCH ×2 (09:32→21:24)
--- NOTE | 2017-10-10 09:44 | Surgery Progress Note ---
Surgery Progress Note Date of Service October 10, 2017. Subjective Post OP Day: 3 + feeling well, + bowel movement Objective Vital Signs: Date Time Temp Pulse Resp B/P (MAP) Pulse Ox O2 Delivery O2 Flow Rate FiO2 10/10/17 07:35 36.5 57 16 122/69 (86) 92 Room Air 10/10/17 01:00 Room Air 10/09/17 22:51 36.7 64 16 120/69 (86) 92 Room Air 10/09/17 15:30 92 Room Air 10/09/17 15:09 36.5 60 16 120/74 (89) 92 Room Air 10/09/17 13:18 36.4 68 18 146/67 (93) 95 Room Air 10/09/17 12:08 36.8 63 18 91 10/09/17 12:00 Room Air General Appearance: no apparent distress Abdomen: soft Incision(s): clean, dry, intact, no erythema Laboratory Results: Results Past 24 Hours Test 10/09/17 11:59 10/10/17 06:19 Range/Units Hemoglobin 8.6 7.2 12.0-16.0 g/dL Hematocrit 27.4 23.6 37-47 % White Blood Count 8.92 4.8-10.8 K/uL Red Blood Count 2.94 4.2-5.4 M/uL Mean Corpuscular Volume 80.3 80-100 fL Mean Corpuscular Hemoglobin 24.5 25-34 pg Mean Corpuscular Hemoglobin Concent 30.5 32-36 g/dl Platelet Count 273 130-400 K/uL Mean Platelet Volume 8.9 7.4-10.4 fL Neutrophils (%) (Auto) 72.1 % Lymphocytes (%) (Auto) 17.2 % Monocytes (%) (Auto) 7.1 % Eosinophils (%) (Auto) 3.1 % Basophils (%) (Auto) 0.2 % Neutrophils # (Auto) 6.43 1.4-6.5 K/uL Lymphocytes # (Auto) 1.53 1.2-3.4 K/uL Monocytes # (Auto) 0.63 0.11-0.59 K/uL Eosinophils # (Auto) 0.28 0-0.5 K/uL Basophils # (Auto) 0.02 0-0.2 K/uL RDW Standard Deviation 52.9 36.4-46.3 fL RDW Coefficient of Variation 17.9 11.5-14.5 % Immature Granulocyte % (Auto) 0.3 % Immature Granulocyte # (Auto) 0.03 0.00-0.02 K/uL Red Blood Cell Morphology Unremarkable Activated Partial Thromboplast Time 32.4 21.0-31.0 SECONDS Partial Thromboplastin Ratio 1.2 Sodium Level 135 136-145 mmol/L Potassium Level 3.5 3.5-5.1 mmol/L Chloride Level 105 98-107 mmol/L Carbon Dioxide Level 25 21-32 mmol/L Anion Gap 5.0 3-11 mmol/L Blood Urea Nitrogen 11 7-18 mg/dl Creatinine 0.79 0.60-1.20 mg/dl Est Creatinine Clear Calc Drug Dose 49.9 ml/min Estimated GFR () 79.1 Estimated GFR (Non- 68.3 BUN/Creatinine Ratio 13.8 10-20 Random Glucose 92 70-99 mg/dl Calcium Level 8.6 8.5-10.1 mg/dl Assessment & Plan 10/10/17 POD 3 doing well. josé liquids advance diet slowly. possible d/c tomorrow
[2017-10-10] MEDS: ENOXAPARIN 30 MG/0.3 ML SYR SQ SCH ×2 (10:11→21:24)
[2017-10-10] MEDS: DILTIAZEM HCL 120 MG EXT REL CAP PO SCH (10:11)
[2017-10-10] MEDS: HYDROCHLOROTHIAZIDE 25 MG TAB PO SCH (10:11)
[2017-10-10 15:15] VITALS: BP 128/60; PULSE 62; TEMP 36.6; O2SAT 92
[2017-10-10 20:24] LABS: HEMATOCRIT 23.9 % (37-47); HEMOGLOBIN 7.4 g/dL (12.0-16.0)
--- NOTE | 2017-10-10 21:44 | Progress Note ---
Subjective Date of Service: October 10, 2017. Subjective Pt evaluation today including: conversation w/ patient, physical exam Patient reports feeling well. Only complaint si that she has low energy and just wants to sleep. Patient though denies any SOB, dizziness, vertigo, hest pain, palpitations, claudication, cough, wheezing, nausea, vomiting, abdominal pain, dysuria, hematuria, urinary retention, paralysis, weakness, numbness and tingling. Review of Systems All Other Systems: Reviewed and Negative Objective Vital Signs Date Time Temp Pulse Resp B/P (MAP) Pulse Ox O2 Delivery O2 Flow Rate FiO2 10/10/17 15:29 Room Air 10/10/17 15:15 36.6 62 18 128/60 (82) 92 Room Air 10/10/17 07:38 Room Air 10/10/17 07:35 36.5 57 16 122/69 (86) 92 Room Air 10/10/17 01:00 Room Air 10/09/17 22:51 36.7 64 16 120/69 (86) 92 Room Air Physical Exam Comments: General appearance: +Obese. Well-developed, well-nourished, no apparent distress Head: Normocephalic, atraumatic Eyes: Normal inspection, PERRL, EOMI ENT: Normal ENT inspection, hearing grossly normal, pharynx normal Neck: Supple, no JVD, trachea midline Respiratory/Chest: Lungs clear to auscultation, normal breath sounds, no respiratory distress Cardiovascular: +Systolic murmur. Regular rate & rhythm, no gallop Abdomen/GI: +Incision dressed, clean and dry. Very mild diffuse TTP. Normal bowel sounds, soft Extremities/Musculoskeletal: +Trace pitting edema. Normal inspection, no calf tenderness Neurological/Psych: Alert, normal mood/affect, oriented x 3 Skin: Normal color, warm/dry, no rash Laboratory Results Last 24 Hours Test 10/10/17 06:19 10/10/17 19:58 White Blood Count 8.92 K/uL Red Blood Count 2.94 M/uL Hemoglobin 7.2 g/dL 7.4 g/dL Hematocrit 23.6 % 23.9 % Mean Corpuscular Volume 80.3 fL Mean Corpuscular Hemoglobin 24.5 pg Mean Corpuscular Hemoglobin Concent 30.5 g/dl Platelet Count 273 K/uL Mean Platelet Volume 8.9 fL Neutrophils (%) (Auto) 72.1 % Lymphocytes (%) (Auto) 17.2 % Monocytes (%) (Auto) 7.1 % Eosinophils (%) (Auto) 3.1 % Basophils (%) (Auto) 0.2 % Neutrophils # (Auto) 6.43 K/uL Lymphocytes # (Auto) 1.53 K/uL Monocytes # (Auto) 0.63 K/uL Eosinophils # (Auto) 0.28 K/uL Basophils # (Auto) 0.02 K/uL RDW Standard Deviation 52.9 fL RDW Coefficient of Variation 17.9 % Immature Granulocyte % (Auto) 0.3 % Immature Granulocyte # (Auto) 0.03 K/uL Red Blood Cell Morphology Unremarkable Activated Partial Thromboplast Time 32.4 SECONDS Partial Thromboplastin Ratio 1.2 Sodium Level 135 mmol/L Potassium Level 3.5 mmol/L Chloride Level 105 mmol/L Carbon Dioxide Level 25 mmol/L Anion Gap 5.0 mmol/L Blood Urea Nitrogen 11 mg/dl Creatinine 0.79 mg/dl Est Creatinine Clear Calc Drug Dose 49.9 ml/min Estimated GFR () 79.1 Estimated GFR (Non- 68.3 BUN/Creatinine Ratio 13.8 Random Glucose 92 mg/dl Calcium Level 8.6 mg/dl Assessment and Plan 87 y/o female with a history of HTN, Anemia, Paroxysmal Atrial Fibrillation, Reactive Airway Disease, and Peripheral Edema who was diagnosed with infiltrative adenocarcinoma and presents S/P R Hemicolectomy, Lysis of Adhesions , and End-to-End Ileocolonic anastomosis by Dr. Ibrahim on 10/07 for medical management. Infiltrative Adenocarcinoma S/P R Hemicolectomy/Lysis of Adhesions/End-to-End Ileocolonic Anastomosis--POD #2 - Pain management, IVF, PT/OT, DVT prophylaxis, and surgical input per primary team - Lovenox 30 mg SC BID for DVT ppx per primary. Recommend restarting Eliquis when ok with surgery - Pain well controlled, AVSS - Spoke with April from surgery. Pt voiding well, tolerating clear liquids. Ok to advance to full liquids - D/C IVF as eating adequately PO Acute blood loss anemia in postop setting -Baseline Hgb 10-11 -Hgb 7.2 on 10/09, down from 9.3 -Recheck was 7.4 -despite feeling fatigue will hold transfusion.may also be dilutional as patient is postive and has some swelling in lower extremities. Paroxysmal Atrial Fibrillation--stable, currently in SR - Pt monitored on tele and has remained in SR with HR 50s-70s. Stable to transfer to med/surg - Eliquis on hold given surgery - should be resumed when safe to do so from a surgical perspective - Continue Diltiazem 240 mg daily Peripheral Edema, HTN--stable, edema improving per pt - D/C IVF as above - Restart HCTZ 25 mg PO qd (h0ld hctz in am) -gave bumex order for am. - Continue diltiazem as above Reactive Airway Disease--stable - Mometasone Furoate 1 puff BID Pre-Operative UTI--stable, denies urinary symptoms - Was placed on Macrobid as outpatient. Currently receiving Cefoxitin during surgery. Does not require further abx Thank you for this consultation. We will continue to follow.
[2017-10-10 23:49] VITALS: BP 139/67; PULSE 68; TEMP 37; O2SAT 90
[2017-10-11] MEDS: KETOROLAC TROMETHAMINE 15 MG/ML VIAL IV SCH ×3 (05:45→18:36)
[2017-10-11] MEDS: ACETAMINOPHEN 500 MG TAB PO SCH ×3 (05:46→22:28)
[2017-10-11 06:06] LABS: BASO % 0.2 %; BASO ABS # 0.03 K/uL (0-0.2); EOS % 1.7 %; EOS ABS # 0.23 K/uL (0-0.5); HEMATOCRIT 25.6 % (37-47); HEMOGLOBIN 7.8 g/dL (12.0-16.0); IG# 0.04 K/uL (0.00-0.02); LYMPH % 10.7 %; LYMPH ABS # 1.48 K/uL (1.2-3.4); MEAN CELL VOLUME 79.5 fL (80-100); MEAN CORPUSCULAR HEMOGLOBIN 24.2 pg (25-34); MEAN CORPUSCULAR HGB CONC 30.5 g/dl (32-36); MEAN PLATELET VOLUME 8.9 fL (7.4-10.4); MONO ABS # 0.97 K/uL (0.11-0.59); NEUT % 80.1 %; NEUT ABS # 11.05 K/uL (1.4-6.5); PLATELET COUNT 331 K/uL (130-400); RED CELL DISTRIBUTION WIDTH SD 53.1 fL (36.4-46.3)
[2017-10-11 06:33] LABS: CALCIUM 8.9 mg/dl (8.5-10.1); CREATININE 0.75 mg/dl (0.60-1.20); POTASSIUM 3.7 mmol/L (3.5-5.1)
[2017-10-11 07:10] VITALS: BP 132/58; PULSE 71; TEMP 37; O2SAT 95
[2017-10-11] MEDS ORDERED: BUMETANIDE 1 MG TAB PO SCH (09:00)
--- NOTE | 2017-10-11 09:31 | Surgery Progress Note ---
Surgery Progress Note Date of Service October 11, 2017. Subjective Post OP Day: 4 + feeling well, + flatus, + pain controlled, No complaints, No nausea, No vomiting Objective Vital Signs: Date Time Temp Pulse Resp B/P (MAP) Pulse Ox O2 Delivery O2 Flow Rate FiO2 10/10/17 23:49 37.0 68 16 139/67 (91) 90 Room Air 10/10/17 23:15 Room Air 10/10/17 15:29 Room Air 10/10/17 15:15 36.6 62 18 128/60 (82) 92 Room Air General Appearance: WD/WN, no apparent distress Head: normocephalic, atraumatic Abdomen: non tender, non distended, soft Incision(s): clean, dry, intact Laboratory Results: Results Past 24 Hours Test 10/10/17 19:58 10/11/17 05:44 Range/Units Hemoglobin 7.4 7.8 12.0-16.0 g/dL Hematocrit 23.9 25.6 37-47 % White Blood Count 13.80 4.8-10.8 K/uL Red Blood Count 3.22 4.2-5.4 M/uL Mean Corpuscular Volume 79.5 80-100 fL Mean Corpuscular Hemoglobin 24.2 25-34 pg Mean Corpuscular Hemoglobin Concent 30.5 32-36 g/dl Platelet Count 331 130-400 K/uL Mean Platelet Volume 8.9 7.4-10.4 fL Neutrophils (%) (Auto) 80.1 % Lymphocytes (%) (Auto) 10.7 % Monocytes (%) (Auto) 7.0 % Eosinophils (%) (Auto) 1.7 % Basophils (%) (Auto) 0.2 % Neutrophils # (Auto) 11.05 1.4-6.5 K/uL Lymphocytes # (Auto) 1.48 1.2-3.4 K/uL Monocytes # (Auto) 0.97 0.11-0.59 K/uL Eosinophils # (Auto) 0.23 0-0.5 K/uL Basophils # (Auto) 0.03 0-0.2 K/uL RDW Standard Deviation 53.1 36.4-46.3 fL RDW Coefficient of Variation 18.0 11.5-14.5 % Immature Granulocyte % (Auto) 0.3 % Immature Granulocyte # (Auto) 0.04 0.00-0.02 K/uL Hypochromasia PRESENT Sodium Level 136 136-145 mmol/L Potassium Level 3.7 3.5-5.1 mmol/L Chloride Level 104 98-107 mmol/L Carbon Dioxide Level 26 21-32 mmol/L Anion Gap 7.0 3-11 mmol/L Blood Urea Nitrogen 14 7-18 mg/dl Creatinine 0.75 0.60-1.20 mg/dl Est Creatinine Clear Calc Drug Dose 52.5 ml/min Estimated GFR () 84.2 Estimated GFR (Non- 72.7 BUN/Creatinine Ratio 18.7 10-20 Random Glucose 95 70-99 mg/dl Calcium Level 8.9 8.5-10.1 mg/dl Assessment & Plan 10/11/2017 POD #4 Patient seen and examined with Dr. Khan. Patient's AM labs reviewed, Hgb 7.8; Hct 25.6. Had stat repeat of H and H last evening, Hgb 7.4. Dr. Pete added additional diuretic for this AM. WBC elevated this AM at 13.80 Patient afebrile and vital signs stable. Patient denies dizziness or lightheadedness. Patient doing well, tolerating low fiber diet. Pain controlled. Had BM 1 day ago (no blood in stool), passing flatus. 10/11/17 as above clinically doing ok but appear fatiqued today. no more bm's wbc increased slightly to 13,000 . hg stable likely ready for d/c soon but I think not quite ready today. recheck wbc tomorrow. patient agrees with plan. 10/10/17 POD 3 doing well. josé liquids advance diet slowly. possible d/c tomorrow
[2017-10-11] MEDS: MOMETASONE FUROATE 14 PUFF/1 INHALER INH SCH ×2 (09:41→22:27)
[2017-10-11] MEDS: ENOXAPARIN 30 MG/0.3 ML SYR SQ SCH ×2 (09:41→22:28)
[2017-10-11] MEDS: DILTIAZEM HCL 120 MG EXT REL CAP PO SCH (09:42)
[2017-10-11 15:15] VITALS: BP 159/89; PULSE 71; TEMP 37.4; O2SAT 91
[2017-10-11] MEDS ORDERED: PROMETHAZINE HCL INJ 12.5 MG in SODIUM CHLORIDE 0.9% 50ML 50 ML IV STA (22:08)
[2017-10-11] MEDS ORDERED: RANITIDINE HCL 150 MG TAB PO ONE (22:08)
[2017-10-11] MEDS ORDERED: RANITIDINE HCL 150 MG TAB PO PRN (22:15)
[2017-10-11 22:55] VITALS: BP 150/82; PULSE 83; TEMP 37; O2SAT 92
--- NOTE | 2017-10-11 23:33 | Progress Note ---
Subjective Date of Service: October 11, 2017. Subjective Patient reports feeling very nauseous today. Patient states that after drinking some soda, she felt better. Her low energy however is the same. Patient though denies any SOB, dizziness, vertigo, chest pain, palpitations, claudication, cough, wheezing, abdominal pain, dysuria, hematuria, urinary retention, paralysis, weakness, numbness and tingling. Review of Systems All Other Systems: Reviewed and Negative Objective Vital Signs Date Time Temp Pulse Resp B/P (MAP) Pulse Ox O2 Delivery O2 Flow Rate FiO2 10/11/17 22:55 37.0 83 14 150/82 (104) 92 Room Air 10/11/17 15:37 Room Air 10/11/17 15:15 37.4 71 16 159/89 (112) 91 Room Air 10/11/17 07:53 Room Air 10/11/17 07:10 37.0 71 16 132/58 (82) 95 Room Air 10/10/17 23:49 37.0 68 16 139/67 (91) 90 Room Air Physical Exam Comments: General appearance: +Obese. Well-developed, well-nourished, no apparent distress Head: Normocephalic, atraumatic Eyes: Normal inspection, PERRL, EOMI ENT: Normal ENT inspection, hearing grossly normal, pharynx normal Neck: Supple, no JVD, trachea midline Respiratory/Chest: Lungs clear to auscultation, normal breath sounds, no respiratory distress Cardiovascular: +Systolic murmur. Regular rate & rhythm, no gallop Abdomen/GI: +Incision dressed, clean and dry. Very mild diffuse TTP. Normal bowel sounds, soft Extremities/Musculoskeletal: +Trace pitting edema. Normal inspection, no calf tenderness Neurological/Psych: Alert, normal mood/affect, oriented x 3 Skin: Normal color, warm/dry, no rash Laboratory Results Last 24 Hours Test 10/11/17 05:44 10/11/17 17:13 White Blood Count 13.80 K/uL Red Blood Count 3.22 M/uL Hemoglobin 7.8 g/dL Hematocrit 25.6 % Mean Corpuscular Volume 79.5 fL Mean Corpuscular Hemoglobin 24.2 pg Mean Corpuscular Hemoglobin Concent 30.5 g/dl Platelet Count 331 K/uL Mean Platelet Volume 8.9 fL Neutrophils (%) (Auto) 80.1 % Lymphocytes (%) (Auto) 10.7 % Monocytes (%) (Auto) 7.0 % Eosinophils (%) (Auto) 1.7 % Basophils (%) (Auto) 0.2 % Neutrophils # (Auto) 11.05 K/uL Lymphocytes # (Auto) 1.48 K/uL Monocytes # (Auto) 0.97 K/uL Eosinophils # (Auto) 0.23 K/uL Basophils # (Auto) 0.03 K/uL RDW Standard Deviation 53.1 fL RDW Coefficient of Variation 18.0 % Immature Granulocyte % (Auto) 0.3 % Immature Granulocyte # (Auto) 0.04 K/uL Hypochromasia PRESENT Sodium Level 136 mmol/L Potassium Level 3.7 mmol/L Chloride Level 104 mmol/L Carbon Dioxide Level 26 mmol/L Anion Gap 7.0 mmol/L Blood Urea Nitrogen 14 mg/dl Creatinine 0.75 mg/dl Est Creatinine Clear Calc Drug Dose 52.5 ml/min Estimated GFR () 84.2 Estimated GFR (Non- 72.7 BUN/Creatinine Ratio 18.7 Random Glucose 95 mg/dl Calcium Level 8.9 mg/dl Bedside Glucose 116 mg/dl Assessment and Plan 87 y/o female with a history of HTN, Anemia, Paroxysmal Atrial Fibrillation, Reactive Airway Disease, and Peripheral Edema who was diagnosed with infiltrative adenocarcinoma and presents S/P R Hemicolectomy, Lysis of Adhesions , and End-to-End Ileocolonic anastomosis by Dr. Ibrahim on 10/07 for medical management. Infiltrative Adenocarcinoma S/P R Hemicolectomy/Lysis of Adhesions/End-to-End Ileocolonic Anastomosis--POD #2 - Pain management, IVF, PT/OT, DVT prophylaxis, and surgical input per primary team - Lovenox 30 mg SC BID for DVT ppx per primary. Recommend restarting Eliquis when ok with surgery - Pain well controlled, AVSS - Spoke with April from surgery. Pt voiding well, tolerating clear liquids. Ok to advance to full liquids - D/C IVF as eating adequately PO Acute blood loss anemia in postop setting -Baseline Hgb 10-11 -Hgb 7.8, down from 9.3 Hemoglobin appears to be trending up. will monitor. will hold discharge today. will give bumex pO one time order as patient may be hemodilutional. Paroxysmal Atrial Fibrillation--stable, currently in SR - Pt monitored on tele and has remained in SR with HR 50s-70s. Stable to transfer to med/surg - Eliquis on hold given surgery - should be resumed when safe to do so from a surgical perspective - Continue Diltiazem 240 mg daily Peripheral Edema, HTN--stable, edema improving per pt - D/C IVF as above -Gave bumex one time order today. - Restart HCTZ 25 mg PO qd in AM. - Continue diltiazem as above Reactive Airway Disease--stable - Mometasone Furoate 1 puff BID Pre-Operative UTI--stable, denies urinary symptoms - Was placed on Macrobid as outpatient. Currently receiving Cefoxitin during surgery. Does not require further abx Thank you for this consultation. We will continue to follow.
[2017-10-12] MEDS: KETOROLAC TROMETHAMINE 15 MG/ML VIAL IV SCH ×5 (00:01→23:22)
[2017-10-12] MEDS: ACETAMINOPHEN 500 MG TAB PO SCH ×3 (05:39→20:58)
[2017-10-12 06:00] LABS: BASO % 0.2 %; BASO ABS # 0.03 K/uL (0-0.2); EOS % 0.7 %; EOS ABS # 0.08 K/uL (0-0.5); HEMATOCRIT 27.2 % (37-47); HEMOGLOBIN 8.4 g/dL (12.0-16.0); IG# 0.02 K/uL (0.00-0.02); LYMPH % 11.8 %; LYMPH ABS # 1.44 K/uL (1.2-3.4); MEAN CELL VOLUME 78.6 fL (80-100); MEAN CORPUSCULAR HEMOGLOBIN 24.3 pg (25-34); MEAN CORPUSCULAR HGB CONC 30.9 g/dl (32-36); MEAN PLATELET VOLUME 8.5 fL (7.4-10.4); MONO ABS # 0.98 K/uL (0.11-0.59); NEUT % 79.1 %; NEUT ABS # 9.66 K/uL (1.4-6.5); PLATELET COUNT 355 K/uL (130-400); RED CELL DISTRIBUTION WIDTH CV 17.9 % (11.5-14.5); RED CELL DISTRIBUTION WIDTH SD 51.9 fL (36.4-46.3); WHITE BLOOD COUNT 12.21 K/uL (4.8-10.8)
[2017-10-12 07:14] VITALS: BP 126/81; PULSE 82; TEMP 37.2; O2SAT 92
--- NOTE | 2017-10-12 07:45 | Surgery Progress Note ---
Surgery Progress Note Date of Service October 12, 2017. Subjective Post OP Day: 5 nausea began after breakfast yesterday, didn't eat after that, felt better after moderate emesis last night, scant flatus, small BM last night Objective Vital Signs: Date Time Temp Pulse Resp B/P (MAP) Pulse Ox O2 Delivery O2 Flow Rate FiO2 10/12/17 07:14 37.2 82 18 126/81 (96) 92 Room Air 10/11/17 23:45 Room Air 10/11/17 22:55 37.0 83 14 150/82 (104) 92 Room Air 10/11/17 15:37 Room Air 10/11/17 15:15 37.4 71 16 159/89 (112) 91 Room Air 10/11/17 07:53 Room Air Abdomen: normal bowel sounds, soft, + distended (slightly) Laboratory Results: Results Past 24 Hours Test 10/11/17 17:13 10/12/17 05:43 Range/Units Bedside Glucose 116 70-90 mg/dl White Blood Count 12.21 4.8-10.8 K/uL Red Blood Count 3.46 4.2-5.4 M/uL Hemoglobin 8.4 12.0-16.0 g/dL Hematocrit 27.2 37-47 % Mean Corpuscular Volume 78.6 80-100 fL Mean Corpuscular Hemoglobin 24.3 25-34 pg Mean Corpuscular Hemoglobin Concent 30.9 32-36 g/dl Platelet Count 355 130-400 K/uL Mean Platelet Volume 8.5 7.4-10.4 fL Neutrophils (%) (Auto) 79.1 % Lymphocytes (%) (Auto) 11.8 % Monocytes (%) (Auto) 8.0 % Eosinophils (%) (Auto) 0.7 % Basophils (%) (Auto) 0.2 % Neutrophils # (Auto) 9.66 1.4-6.5 K/uL Lymphocytes # (Auto) 1.44 1.2-3.4 K/uL Monocytes # (Auto) 0.98 0.11-0.59 K/uL Eosinophils # (Auto) 0.08 0-0.5 K/uL Basophils # (Auto) 0.03 0-0.2 K/uL RDW Standard Deviation 51.9 36.4-46.3 fL RDW Coefficient of Variation 17.9 11.5-14.5 % Immature Granulocyte % (Auto) 0.2 % Immature Granulocyte # (Auto) 0.02 0.00-0.02 K/uL Red Blood Cell Morphology Unremarkable Assessment & Plan s/p LHA right colectomy she wants to try liquids again today, consider restarting IVF if not taking adequate WBC, H&H stable/slightly improved
--- NOTE | 2017-10-12 09:24 | Progress Note ---
Subjective Date of Service: October 12, 2017. Subjective This pt was seen in the company of her daughter, she is sipping kallie chris but still slightly nauseated Review of Systems Constitutional: + weakness, + fatigue, No fever, No chills Respiratory: No cough, No shortness of breath Cardiac: No chest pain, No edema Abdomen: + constipation, No pain, No diarrhea Musculoskeletal: No joint pain, No muscle pain Neurologic: No memory loss, No weakness Psychiatric: No depression symptoms, No anhedonism Objective Vital Signs Date Time Temp Pulse Resp B/P (MAP) Pulse Ox O2 Delivery O2 Flow Rate FiO2 10/12/17 07:14 37.2 82 18 126/81 (96) 92 Room Air 10/11/17 23:45 Room Air 10/11/17 22:55 37.0 83 14 150/82 (104) 92 Room Air 10/11/17 15:37 Room Air 10/11/17 15:15 37.4 71 16 159/89 (112) 91 Room Air Physical Exam General Appearance: WD/WN, + mild distress Neck: supple, no JVD Respiratory/Chest: chest non-tender, lungs clear, normal breath sounds Cardiovascular: regular rate, rhythm, no murmur Abdomen: + abnormal bowel sounds, + distended, + guarding Extremities: no pedal edema, no calf tenderness Neurologic/Psychiatric: alert, oriented x 3 Laboratory Results Last 24 Hours Test 10/11/17 17:13 10/12/17 05:43 Bedside Glucose 116 mg/dl White Blood Count 12.21 K/uL Red Blood Count 3.46 M/uL Hemoglobin 8.4 g/dL Hematocrit 27.2 % Mean Corpuscular Volume 78.6 fL Mean Corpuscular Hemoglobin 24.3 pg Mean Corpuscular Hemoglobin Concent 30.9 g/dl Platelet Count 355 K/uL Mean Platelet Volume 8.5 fL Neutrophils (%) (Auto) 79.1 % Lymphocytes (%) (Auto) 11.8 % Monocytes (%) (Auto) 8.0 % Eosinophils (%) (Auto) 0.7 % Basophils (%) (Auto) 0.2 % Neutrophils # (Auto) 9.66 K/uL Lymphocytes # (Auto) 1.44 K/uL Monocytes # (Auto) 0.98 K/uL Eosinophils # (Auto) 0.08 K/uL Basophils # (Auto) 0.03 K/uL RDW Standard Deviation 51.9 fL RDW Coefficient of Variation 17.9 % Immature Granulocyte % (Auto) 0.2 % Immature Granulocyte # (Auto) 0.02 K/uL Red Blood Cell Morphology Unremarkable Assessment and Plan Medical consult note 87 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 Ibrahim on 10/07 for medical management. Infiltrative Adenocarcinoma S/P R Hemicolectomy/Lysis of Adhesions/End-to-End Ileocolonic Anastomosis-- Pt has had slow return of bowel function still not taking po well today Acute blood loss anemia in postop setting Paroxysmal Atrial Fibrillation--stable, currently in SR - Eliquis on hold given surgery - should be resumed - Continue Diltiazem 240 mg daily Peripheral Edema, HTN-diltiazem and hctz 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
[2017-10-12] MEDS: MOMETASONE FUROATE 14 PUFF/1 INHALER INH SCH ×2 (09:43→20:56)
[2017-10-12] MEDS: DILTIAZEM HCL 120 MG EXT REL CAP PO SCH (09:44)
[2017-10-12] MEDS: ENOXAPARIN 30 MG/0.3 ML SYR SQ SCH ×2 (09:44→20:57)
[2017-10-12] MEDS: HYDROCHLOROTHIAZIDE 25 MG TAB PO SCH (10:22)
[2017-10-12] MEDS ORDERED: ONDANSETRON INJ 2 MG/ML 2 ML VIAL IV PRN (10:30)
[2017-10-12] MEDS: ONDANSETRON INJ 8 MG in DEXTROSE 5% 50ML 50 ML IV PRN ×2 (12:46→20:57)
[2017-10-12 15:11] VITALS: BP 145/64; PULSE 67; TEMP 37.3; O2SAT 91
[2017-10-12] MEDS: PROMETHAZINE HCL INJ 12.5 MG in SODIUM CHLORIDE 0.9% 50ML 50 ML IV PRN (22:03)
[2017-10-12] MEDS: SODIUM CHLORIDE 0.9% 1000ML 1,000 ML IV SCH (22:07)
[2017-10-12 23:12] VITALS: BP 150/78; PULSE 70; TEMP 37.2; O2SAT 90
[2017-10-13] MEDS: ACETAMINOPHEN 500 MG TAB PO SCH ×3 (05:40→21:46)
[2017-10-13] MEDS: KETOROLAC TROMETHAMINE 15 MG/ML VIAL IV SCH ×4 (05:40→23:25)
[2017-10-13 06:09] LABS: BASO % 0.2 %; BASO ABS # 0.02 K/uL (0-0.2); EOS ABS # 0.18 K/uL (0-0.5); HEMATOCRIT 24.5 % (37-47); HEMOGLOBIN 7.6 g/dL (12.0-16.0); IG# 0.02 K/uL (0.00-0.02); LYMPH % 16.1 %; LYMPH ABS # 1.43 K/uL (1.2-3.4); MEAN CORPUSCULAR HEMOGLOBIN 24.2 pg (25-34); MEAN PLATELET VOLUME 8.6 fL (7.4-10.4); MONO % 12.9 %; MONO ABS # 1.14 K/uL (0.11-0.59); NEUT % 68.6 %; NEUT ABS # 6.07 K/uL (1.4-6.5); PLATELET COUNT 373 K/uL (130-400); RED CELL DISTRIBUTION WIDTH SD 52.4 fL (36.4-46.3); WHITE BLOOD COUNT 8.86 K/uL (4.8-10.8)
[2017-10-13 06:30] LABS: CALCIUM 8.9 mg/dl (8.5-10.1); CREATININE 0.78 mg/dl (0.60-1.20); POTASSIUM 3.7 mmol/L (3.5-5.1)
--- NOTE | 2017-10-13 06:40 | Surgery Progress Note ---
Surgery Progress Note Date of Service October 13, 2017. Subjective Post OP Day: 6 + feeling well, + complaints (Had some more emesis last night.), + bowel movement (Very small BM yesterday), + flatus, + pain controlled, + nausea (last night), + vomiting (last night), + diet (Backed off to NPO chips/sips/meds.) Patient had another episode of nausea and green vomitus last night approximately 700 ml. Zofran was not improving her nausea at this time. Diet was backed off to NPO except chips/sips/meds. IV fluids were added and IV phenergan was added for better nausea control. This AM she is in no pain, denies N/V at this time. Objective Vital Signs: Date Time Temp Pulse Resp B/P (MAP) Pulse Ox O2 Delivery O2 Flow Rate FiO2 10/12/17 23:27 Room Air 10/12/17 23:12 37.2 70 16 150/78 (102) 90 Room Air 10/12/17 16:14 Room Air 10/12/17 15:11 37.3 67 18 145/64 (91) 91 Room Air 10/12/17 07:28 Room Air 10/12/17 07:14 37.2 82 18 126/81 (96) 92 Room Air General Appearance: WD/WN, no apparent distress Head: normocephalic, atraumatic Respiratory/Chest: no respiratory distress, no accessory muscle use Abdomen: non tender, soft, no organomegaly, no pulsatile mass, + distended ( Mild-mod) Incision(s): clean, dry, intact Laboratory Results: Results Past 24 Hours Test 10/13/17 05:52 Range/Units White Blood Count 8.86 4.8-10.8 K/uL Red Blood Count 3.14 4.2-5.4 M/uL Hemoglobin 7.6 12.0-16.0 g/dL Hematocrit 24.5 37-47 % Mean Corpuscular Volume 78.0 80-100 fL Mean Corpuscular Hemoglobin 24.2 25-34 pg Mean Corpuscular Hemoglobin Concent 31.0 32-36 g/dl Platelet Count 373 130-400 K/uL Mean Platelet Volume 8.6 7.4-10.4 fL Neutrophils (%) (Auto) 68.6 % Lymphocytes (%) (Auto) 16.1 % Monocytes (%) (Auto) 12.9 % Eosinophils (%) (Auto) 2.0 % Basophils (%) (Auto) 0.2 % Neutrophils # (Auto) 6.07 1.4-6.5 K/uL Lymphocytes # (Auto) 1.43 1.2-3.4 K/uL Monocytes # (Auto) 1.14 0.11-0.59 K/uL Eosinophils # (Auto) 0.18 0-0.5 K/uL Basophils # (Auto) 0.02 0-0.2 K/uL RDW Standard Deviation 52.4 36.4-46.3 fL RDW Coefficient of Variation 18.0 11.5-14.5 % Immature Granulocyte % (Auto) 0.2 % Immature Granulocyte # (Auto) 0.02 0.00-0.02 K/uL Red Blood Cell Morphology Unremarkable Sodium Level 138 136-145 mmol/L Potassium Level 3.7 3.5-5.1 mmol/L Chloride Level 102 98-107 mmol/L Carbon Dioxide Level 30 21-32 mmol/L Anion Gap 6.0 3-11 mmol/L Blood Urea Nitrogen 22 7-18 mg/dl Creatinine 0.78 0.60-1.20 mg/dl Est Creatinine Clear Calc Drug Dose 50.6 ml/min Estimated GFR () 80.3 Estimated GFR (Non- 69.3 BUN/Creatinine Ratio 28.0 10-20 Random Glucose 89 70-99 mg/dl Calcium Level 8.9 8.5-10.1 mg/dl Assessment & Plan POD #6 s/p laparoscopic right hemicolectomy No pain at this time. Abdomen soft, somewhat distended. Incisions clean, dry and intact. Urinating okay. +flatus. Very small BM last night. WBC WNL. More emesis last night - diet backed off to NPO chips/sips/meds. IV fluids and phenergan added. Keep NPO diet for now - possibly advance later if she feels comfortable. May consider f/u imaging today if she does not progress. H&H down today at 7.6/24.5. Monitor and repeat H&H later today. Will discuss findings with Dr. Ibrahim. Please contact with questions or concerns.
[2017-10-13 07:38] VITALS: BP 133/82; PULSE 67; TEMP 37.1; O2SAT 91
[2017-10-13] MEDS: SODIUM CHLORIDE 0.9% 1000ML 1,000 ML IV SCH ×2 (08:08→18:12)
[2017-10-13 08:13] VITALS: O2SAT 91
--- NOTE | 2017-10-13 08:19 | DIAGNOSTIC IMAGING REPORT ---
CHEST AND ABDOMEN 2 VIEWS HISTORY: Postop. Nausea. Vomiting. COMPARISON: Chest abdomen and pelvis CT 09/18/2017. FINDINGS: The heart remains mildly enlarged. The lungs are clear. No pneumothorax. Tortuous and mildly ectatic thoracic aorta remains unchanged. Stable blunting of the costophrenic sulci. No definite pleural effusions. No pneumoperitoneum. No pneumatosis. Posterior fusion within the lumbar spine. Midline skin stable seen within the lower abdomen/pelvis. Bilateral total hip arthroplasties. Left pelvic vascular stent. A few mildly dilated gas-filled and fluid-filled loops of bowel within the abdomen. There is suture material within the right lower quadrant consistent with the recent postoperative change. IMPRESSION: 1. No acute process within the chest. 2. A few mildly dilated gas-filled and fluid-filled loops of bowel within the midabdomen. This is nonspecific but favors a postoperative ileus. Follow-up recommended to ensure resolution. Electronically signed by: Too Mao M.D. 10/13/2017 8:18 AM Dictated Date/Time: 10/13/2017 8:15 AM
--- NOTE | 2017-10-13 08:32 | Progress Note ---
Subjective Date of Service: October 13, 2017. Subjective pt has had sluggish progress of resumption of bowel function remaining nauseated with occasional vomitus, plain xray from today looks to be consistent with ileus and post op acute blood loss anemia has been stable Review of Systems Constitutional: + weakness, + fatigue, No fever, No chills Respiratory: No cough, No shortness of breath Cardiac: No chest pain, No edema Abdomen: + pain, + nausea, + vomiting, No diarrhea Musculoskeletal: No joint pain, No muscle pain Female : No dysuria, No urinary frequency Psychiatric: No depression symptoms, No anhedonism Objective Vital Signs Date Time Temp Pulse Resp B/P (MAP) Pulse Ox O2 Delivery O2 Flow Rate FiO2 10/13/17 08:13 91 Room Air 10/13/17 07:38 37.1 67 17 133/82 (99) 91 Room Air 10/13/17 07:15 Room Air 10/12/17 23:27 Room Air 10/12/17 23:12 37.2 70 16 150/78 (102) 90 Room Air 10/12/17 16:14 Room Air 10/12/17 15:11 37.3 67 18 145/64 (91) 91 Room Air Physical Exam General Appearance: WD/WN, + mild distress Neck: supple, no JVD Respiratory/Chest: chest non-tender, lungs clear, normal breath sounds Cardiovascular: regular rate, rhythm, no murmur Abdomen: normal bowel sounds, soft, + distended, + tenderness Extremities: no pedal edema, no calf tenderness Neurologic/Psychiatric: alert, oriented x 3 Laboratory Results Last 24 Hours Test 10/13/17 05:52 White Blood Count 8.86 K/uL Red Blood Count 3.14 M/uL Hemoglobin 7.6 g/dL Hematocrit 24.5 % Mean Corpuscular Volume 78.0 fL Mean Corpuscular Hemoglobin 24.2 pg Mean Corpuscular Hemoglobin Concent 31.0 g/dl Platelet Count 373 K/uL Mean Platelet Volume 8.6 fL Neutrophils (%) (Auto) 68.6 % Lymphocytes (%) (Auto) 16.1 % Monocytes (%) (Auto) 12.9 % Eosinophils (%) (Auto) 2.0 % Basophils (%) (Auto) 0.2 % Neutrophils # (Auto) 6.07 K/uL Lymphocytes # (Auto) 1.43 K/uL Monocytes # (Auto) 1.14 K/uL Eosinophils # (Auto) 0.18 K/uL Basophils # (Auto) 0.02 K/uL RDW Standard Deviation 52.4 fL RDW Coefficient of Variation 18.0 % Immature Granulocyte % (Auto) 0.2 % Immature Granulocyte # (Auto) 0.02 K/uL Red Blood Cell Morphology Unremarkable Sodium Level 138 mmol/L Potassium Level 3.7 mmol/L Chloride Level 102 mmol/L Carbon Dioxide Level 30 mmol/L Anion Gap 6.0 mmol/L Blood Urea Nitrogen 22 mg/dl Creatinine 0.78 mg/dl Est Creatinine Clear Calc Drug Dose 50.6 ml/min Estimated GFR () 80.3 Estimated GFR (Non- 69.3 BUN/Creatinine Ratio 28.0 Random Glucose 89 mg/dl Calcium Level 8.9 mg/dl Assessment and Plan Medical consult note 87 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 Ibrahim on 10/07 for medical management. Infiltrative Adenocarcinoma S/P R Hemicolectomy/Lysis of Adhesions/End-to-End Ileocolonic Anastomosis-- Pt has had slow return of bowel function xray from 10/13 shows ileus, will continue watchful waiting and if not improving consider CT in next few days Acute blood loss anemia in postop setting, this has been up and down, repeat h/ h in afternoon is stable around 7.8, will hold on transfusion unless symptomatic Paroxysmal Atrial Fibrillation--remains stable, currently in SR - Eliquis on hold given surgery - should be resumed when able, caution currently with anemia but is on post op lovenox - Continue Diltiazem 240 mg daily Peripheral Edema, HTN-diltiazem and hctz 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
[2017-10-13] MEDS: MOMETASONE FUROATE 14 PUFF/1 INHALER INH SCH ×2 (08:43→21:45)
[2017-10-13 08:45] VITALS: BP 129/76; PULSE 73
[2017-10-13] MEDS: HYDROCHLOROTHIAZIDE 25 MG TAB PO SCH (08:46)
[2017-10-13] MEDS: DILTIAZEM HCL 120 MG EXT REL CAP PO SCH (08:46)
[2017-10-13] MEDS: ENOXAPARIN 30 MG/0.3 ML SYR SQ SCH ×2 (10:04→21:47)
[2017-10-13 12:07] LABS: HEMATOCRIT 24.7 % (37-47); HEMOGLOBIN 7.8 g/dL (12.0-16.0)
[2017-10-13 15:41] VITALS: BP 129/63; PULSE 67; TEMP 37.4; O2SAT 91
[2017-10-13 23:20] VITALS: BP 137/55; PULSE 72; TEMP 37; O2SAT 92
[2017-10-14] MEDS: PROMETHAZINE HCL INJ 12.5 MG in SODIUM CHLORIDE 0.9% 50ML 50 ML IV PRN (03:40)
[2017-10-14] MEDS: SODIUM CHLORIDE 0.9% 1000ML 1,000 ML IV SCH ×2 (03:42→14:03)
[2017-10-14] MEDS: ACETAMINOPHEN 500 MG TAB PO SCH ×3 (05:30→21:18)
[2017-10-14] MEDS: KETOROLAC TROMETHAMINE 15 MG/ML VIAL IV SCH ×2 (05:33→11:36)
[2017-10-14 06:04] LABS: HEMATOCRIT 24.4 % (37-47); HEMOGLOBIN 7.6 g/dL (12.0-16.0)
[2017-10-14 06:32] LABS: CALCIUM 8.9 mg/dl (8.5-10.1); CREATININE 0.63 mg/dl (0.60-1.20); POTASSIUM 3.8 mmol/L (3.5-5.1)
--- NOTE | 2017-10-14 06:55 | Surgery Progress Note ---
Surgery Progress Note Date of Service October 14, 2017. Subjective Post OP Day: 7 + flatus, + pain controlled, + nausea, + vomiting, + diet (NPO chips, sips, meds ), No bowel movement Patient had another episode of approximately 1000ml of greenish/bile colored vomit. Afterwords she reported that she felt much better. Denies any nausea/ vomiting at this time. Denies any abdominal pain at this time. Decreased urination overnight at 125ml, bladder scan showed 210ml. Patient denies any urinary symptoms. Objective Vital Signs: Date Time Temp Pulse Resp B/P (MAP) Pulse Ox O2 Delivery O2 Flow Rate FiO2 10/13/17 23:22 Room Air 10/13/17 23:20 37.0 72 18 137/55 (82) 92 Room Air 10/13/17 16:20 Room Air 10/13/17 15:41 37.4 67 18 129/63 (85) 91 Room Air 10/13/17 08:45 73 129/76 (93) 10/13/17 08:13 91 Room Air 10/13/17 07:38 37.1 67 17 133/82 (99) 91 Room Air 10/13/17 07:15 Room Air General Appearance: WD/WN, no apparent distress Head: normocephalic, atraumatic Respiratory/Chest: no respiratory distress, no accessory muscle use Abdomen: non tender, soft, no organomegaly, + distended (mild-moderate) Incision(s): clean, dry, intact Laboratory Results: Results Past 24 Hours Test 10/13/17 11:56 10/14/17 05:38 Range/Units Hemoglobin 7.8 12.0-16.0 g/dL Hematocrit 24.7 37-47 % Assessment & Plan POD #7 s/p laparoscopic right hemicolectomy, post-op ileus. Abdomen soft, somewhat distended, no pain at this time. 1000ml emesis early this morning, N/V resolved. +flatus, No more BM. Decreased urination overnight. Continue NPO chips, sips, meds. Continue IV fluids. OOB to chair. Am labs pending. May consider f/u CT due to continued symptoms. NGT if any more episodes of vomiting. Will discuss findings with Dr. Ibrahim. Please contact with questions or concerns. POD #6 s/p laparoscopic right hemicolectomy No pain at this time. Abdomen soft, somewhat distended. Incisions clean, dry and intact. Urinating okay. +flatus. Very small BM last night. WBC WNL. More emesis last night - diet backed off to NPO chips/sips/meds. IV fluids and phenergan added. Keep NPO diet for now - possibly advance later if she feels comfortable. May consider f/u imaging today if she does not progress. H&H down today at 7.6/24.5. Monitor and repeat H&H later today. Will discuss findings with Dr. Ibrahim. Please contact with questions or concerns.
[2017-10-14 07:47] VITALS: BP 134/82; PULSE 70; TEMP 36.8; O2SAT 89
[2017-10-14 07:54] VITALS: O2SAT 94
[2017-10-14] MEDS ORDERED: OPTIRAY 320 IV PRN (08:15)
[2017-10-14] MEDS: HYDROCHLOROTHIAZIDE 25 MG TAB PO SCH (08:36)
[2017-10-14] MEDS: DILTIAZEM HCL 120 MG EXT REL CAP PO SCH (08:37)
[2017-10-14] MEDS: MOMETASONE FUROATE 14 PUFF/1 INHALER INH SCH ×2 (08:37→21:16)
[2017-10-14 08:42] LABS: BASO % 0.3 %; BASO ABS # 0.02 K/uL (0-0.2); EOS % 1.4 %; EOS ABS # 0.11 K/uL (0-0.5); HEMATOCRIT 23.8 % (37-47); HEMOGLOBIN 7.5 g/dL (12.0-16.0); IG# 0.03 K/uL (0.00-0.02); LYMPH % 18.6 %; LYMPH ABS # 1.49 K/uL (1.2-3.4); MEAN CELL VOLUME 78.5 fL (80-100); MEAN CORPUSCULAR HEMOGLOBIN 24.8 pg (25-34); MEAN CORPUSCULAR HGB CONC 31.5 g/dl (32-36); MEAN PLATELET VOLUME 8.4 fL (7.4-10.4); MONO ABS # 0.96 K/uL (0.11-0.59); NEUT % 67.3 %; NEUT ABS # 5.38 K/uL (1.4-6.5); PLATELET COUNT 382 K/uL (130-400); RED CELL DISTRIBUTION WIDTH SD 52.4 fL (36.4-46.3); WHITE BLOOD COUNT 7.99 K/uL (4.8-10.8)
[2017-10-14 09:03] VITALS: O2SAT 94
[2017-10-14] MEDS: ENOXAPARIN 30 MG/0.3 ML SYR SQ SCH ×2 (11:02→21:18)
--- NOTE | 2017-10-14 11:13 | DIAGNOSTIC IMAGING REPORT ---
CT ABD/PELVIS IV AND ORAL CONT CLINICAL HISTORY: Colon carcinoma status post right hemicolectomy. Ileus. COMPARISON STUDY: September 18, 2017 TECHNIQUE: Following the IV administration of 93 mL of Optiray-320, CT scan of the abdomen and pelvis was performed from the lung bases to the proximal femurs. Images are reviewed in the axial, sagittal, and coronal planes. IV contrast was administered without complication. A dose lowering technique was utilized adhering to the principles of ALARA. CT DOSE: 938.60 mGycm FINDINGS: Lower chest: Since the prior study, the patient developed a small right pleural effusion and trace left pleural effusion. There are bibasal or dependent airspace opacities, likely atelectatic. Liver: There is a stable 11 mm hypodensity within the right hepatic lobe immediately beneath the dome the diaphragm. There is a small amount of perihepatic fluid which was not present on the prior study. Gallbladder: There are numerable gallstones present. Spleen: Normal in size and attenuation. Pancreas: Unremarkable. Adrenal glands: Unremarkable. Kidneys: There is symmetric renal cortical enhancement. The kidneys are normal in size without hydronephrosis. Bowel: There are postsurgical changes of right hemicolectomy. There are dilated fluid-filled small bowel loops down to the level of the ileocolonic anastomosis. This could be secondary to postoperative ileus, or perhaps postoperative edema at the level of the ileocolonic anastomosis (although on CT scanning, the anastomosis appears patent without significant edema). There is infiltration of the soft tissues at the level of the anastomosis, likely postsurgical. There are no fluid collections to indicate an abscess. Peritoneum: There is low volume ascites. Vasculature: There is no evidence of abdominal aortic aneurysm. There is a left external iliac artery stent. Adenopathy: There is an aortocaval lymph node the upper limits of normal in size. There is no definite pathologic adenopathy. Pelvic viscera: There is air within the bladder likely iatrogenic. Portions the pelvis are obscured due to artifact from total hip arthroplasties. Skeletal structures: There are bilateral total hip arthroplasties. There is a cystic mass adjacent to the left medial iliac bone, unchanged the prior study. This likely represents a ganglion or distended bursa. IMPRESSION: 1. Interval right hemicolectomy 2. Dilated small bowel, down to the level of the ileocolonic anastomosis. This could indicate a postoperative ileus, or small bowel obstruction perhaps secondary to edema at the anastomosis. Low volume ascites 4. Cholelithiasis 5. Stable 11 mm cyst within the right lobe of the liver 6. Interval development of a small right pleural effusion and trace left pleural effusion. Bibasilar opacities likely atelectatic 7. Infiltration of the peritoneal fat at the level of the ileocolonic anastomosis. This is likely postsurgical. There are no fluid collections to indicate a drainable abscess. Electronically signed by: Lukasz Davalos M.D. 10/14/2017 11:12 AM Dictated Date/Time: 10/14/2017 11:00 AM
[2017-10-14] MEDS ORDERED: DEXTROSE 10% 1,000 ML IV PRN (11:39)
[2017-10-14] MEDS ORDERED: TPN/PPN CONSULT PHARMACY PRN (11:45)
[2017-10-14 13:02] LABS: PHOSPHORUS 2.7 mg/dl (2.5-4.9)
--- NOTE | 2017-10-14 13:07 | Progress Note ---
Progress Note Date of Service October 14, 2017. Progress Note CT with ileus vs anastomotic edema has had persistent nausea today, agrees to have NG placed
--- NOTE | 2017-10-14 15:47 | Progress Note ---
Subjective Date of Service: October 14, 2017. Subjective pt has persistent nausea and intolerance of oral intake, nausea is significant. Surgery has placed NGT Review of Systems Constitutional: + weakness, + fatigue, No fever, No chills Respiratory: No cough, No shortness of breath Cardiac: No chest pain, No edema Abdomen: + pain, + nausea, + vomiting, + constipation Musculoskeletal: No joint pain, No muscle pain Female : No dysuria, No urinary frequency Neurologic: No memory loss, No paralysis, No weakness Psychiatric: + depression symptoms, + anxiety, No anhedonism Objective Vital Signs Date Time Temp Pulse Resp B/P (MAP) Pulse Ox O2 Delivery O2 Flow Rate FiO2 10/14/17 09:03 94 Room Air 10/14/17 07:54 94 Room Air 10/14/17 07:47 36.8 70 18 134/82 (99) 89 Room Air 10/14/17 07:30 Room Air 10/13/17 23:22 Room Air 10/13/17 23:20 37.0 72 18 137/55 (82) 92 Room Air 10/13/17 16:20 Room Air Physical Exam General Appearance: WD/WN, + moderate distress Eyes: normal inspection, sclerae normal Respiratory/Chest: chest non-tender, lungs clear, normal breath sounds Cardiovascular: regular rate, rhythm, no murmur Abdomen: soft, + abnormal bowel sounds, + guarding, + tenderness Extremities: no pedal edema, no calf tenderness Neurologic/Psychiatric: alert, oriented x 3 Laboratory Results Last 24 Hours Test 10/14/17 05:38 10/14/17 08:30 Hemoglobin 7.6 g/dL 7.5 g/dL Hematocrit 24.4 % 23.8 % Sodium Level 139 mmol/L Potassium Level 3.8 mmol/L Chloride Level 105 mmol/L Carbon Dioxide Level 27 mmol/L Anion Gap 7.0 mmol/L Blood Urea Nitrogen 21 mg/dl Creatinine 0.63 mg/dl Est Creatinine Clear Calc Drug Dose 62.7 ml/min Estimated GFR () 94.8 Estimated GFR (Non- 81.8 BUN/Creatinine Ratio 33.9 Random Glucose 84 mg/dl Calcium Level 8.9 mg/dl Phosphorus Level 2.7 mg/dl Magnesium Level 2.1 mg/dl Total Bilirubin 0.3 mg/dl Aspartate Amino Transf (AST/SGOT) 23 U/L Alanine Aminotransferase (ALT/SGPT) 39 U/L Alkaline Phosphatase 72 U/L White Blood Count 7.99 K/uL Red Blood Count 3.03 M/uL Mean Corpuscular Volume 78.5 fL Mean Corpuscular Hemoglobin 24.8 pg Mean Corpuscular Hemoglobin Concent 31.5 g/dl Platelet Count 382 K/uL Mean Platelet Volume 8.4 fL Neutrophils (%) (Auto) 67.3 % Lymphocytes (%) (Auto) 18.6 % Monocytes (%) (Auto) 12.0 % Eosinophils (%) (Auto) 1.4 % Basophils (%) (Auto) 0.3 % Neutrophils # (Auto) 5.38 K/uL Lymphocytes # (Auto) 1.49 K/uL Monocytes # (Auto) 0.96 K/uL Eosinophils # (Auto) 0.11 K/uL Basophils # (Auto) 0.02 K/uL RDW Standard Deviation 52.4 fL RDW Coefficient of Variation 18.0 % Immature Granulocyte % (Auto) 0.4 % Immature Granulocyte # (Auto) 0.03 K/uL Polychromasia 1+ Assessment and Plan Medical consult note 87 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 Ibrahim on 10/07 for medical management. Infiltrative Adenocarcinoma S/P R Hemicolectomy/Lysis of Adhesions/End-to-End Ileocolonic Anastomosis--CT 10/14 shows ileus and consideration of anastomotic edema General surgery has placed NGT Acute blood loss anemia in postop setting, this has been up and down, repeat h/ h in afternoon is stable in the 7's pt wishes to hold on transfusion unless symptomatic Paroxysmal Atrial Fibrillation--remains stable, currently in SR - Eliquis on hold given surgery - should be resumed when able, caution currently with anemia but is on post op lovenox - Continue Diltiazem 240 mg daily Peripheral Edema, HTN-diltiazem and hctz 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 nutrition will start peripheral nutrition but if this looks to be more prolonged will transition to centeral TPN
[2017-10-14 15:59] VITALS: BP 154/74; PULSE 68; TEMP 36.8; O2SAT 94
[2017-10-14] MEDS ORDERED: CUSTOM PERIPHERAL PN 1 BAG IV SCH (16:00)
[2017-10-14 23:30] VITALS: BP 145/63; PULSE 72; TEMP 37.1; O2SAT 92
[2017-10-15] MEDS: ACETAMINOPHEN 500 MG TAB PO SCH (05:27)
--- NOTE | 2017-10-15 07:03 | Surgery Progress Note ---
Surgery Progress Note Date of Service October 15, 2017. Subjective + feeling well, + complaints (Throat feels a little dry), + ambulating, + bowel movement, + flatus, + pain controlled, + diet (NPO except chips/sips/meds, TPN) , No nausea, No vomiting NGT placement unsuccessful last night. Patient has not had any N/V since her episode of emesis yesterday. Reports a formed BM last night and that she is feeling much better. Objective Vital Signs: Date Time Temp Pulse Resp B/P (MAP) Pulse Ox O2 Delivery O2 Flow Rate FiO2 10/14/17 23:50 Room Air 10/14/17 23:30 37.1 72 16 145/63 (90) 92 Room Air 10/14/17 16:00 Room Air 10/14/17 15:59 36.8 68 18 154/74 (100) 94 Room Air 10/14/17 09:03 94 Room Air 10/14/17 07:54 94 Room Air 10/14/17 07:47 36.8 70 18 134/82 (99) 89 Room Air 10/14/17 07:30 Room Air General Appearance: WD/WN, no apparent distress Head: normocephalic, atraumatic Neck: trachea midline Respiratory/Chest: no respiratory distress, no accessory muscle use Abdomen: non tender, soft, no organomegaly, + distended (mild) Incision(s): clean, dry, intact Laboratory Results: Results Past 24 Hours Test 10/14/17 08:30 10/14/17 23:45 10/15/17 06:48 Range/Units White Blood Count 7.99 4.8-10.8 K/uL Red Blood Count 3.03 4.2-5.4 M/uL Hemoglobin 7.5 12.0-16.0 g/dL Hematocrit 23.8 37-47 % Mean Corpuscular Volume 78.5 80-100 fL Mean Corpuscular Hemoglobin 24.8 25-34 pg Mean Corpuscular Hemoglobin Concent 31.5 32-36 g/dl Platelet Count 382 130-400 K/uL Mean Platelet Volume 8.4 7.4-10.4 fL Neutrophils (%) (Auto) 67.3 % Lymphocytes (%) (Auto) 18.6 % Monocytes (%) (Auto) 12.0 % Eosinophils (%) (Auto) 1.4 % Basophils (%) (Auto) 0.3 % Neutrophils # (Auto) 5.38 1.4-6.5 K/uL Lymphocytes # (Auto) 1.49 1.2-3.4 K/uL Monocytes # (Auto) 0.96 0.11-0.59 K/uL Eosinophils # (Auto) 0.11 0-0.5 K/uL Basophils # (Auto) 0.02 0-0.2 K/uL RDW Standard Deviation 52.4 36.4-46.3 fL RDW Coefficient of Variation 18.0 11.5-14.5 % Immature Granulocyte % (Auto) 0.4 % Immature Granulocyte # (Auto) 0.03 0.00-0.02 K/uL Polychromasia 1+ Bedside Glucose 128 70-90 mg/dl Assessment & Plan POD #8 s/p laparoscopic right hemicolectomy Doing much better today. Abdominal still distended but improved. No N/V overnight. Urinating okay. Ambulating. +flatus, +BM overnight. CT abd/pelvis yesterday shows post-op ileus vs. anastamotic edema. Continue NPO for now, possible clears today if she continues to do well - will go slow with diet. Continue TPN, IV fluids, IV phenergan, OOB as tolerated. Please contact with questions or concerns.
[2017-10-15 07:40] VITALS: BP 136/78; PULSE 69; TEMP 36.9; O2SAT 92
[2017-10-15 08:21] LABS: ALBUMIN 2.5 gm/dl (3.4-5.0); CREATININE 0.56 mg/dl (0.60-1.20); PHOSPHORUS 2.2 mg/dl (2.5-4.9); POTASSIUM 3.4 mmol/L (3.5-5.1)
[2017-10-15 08:44] VITALS: O2SAT 92
[2017-10-15] MEDS: MOMETASONE FUROATE 14 PUFF/1 INHALER INH SCH ×2 (08:53→20:32)
[2017-10-15] MEDS: DILTIAZEM HCL 120 MG EXT REL CAP PO SCH (08:54)
[2017-10-15] MEDS: HYDROCHLOROTHIAZIDE 25 MG TAB PO SCH (08:55)
[2017-10-15] MEDS: ENOXAPARIN 30 MG/0.3 ML SYR SQ SCH (09:57)
[2017-10-15] MEDS ORDERED: ACETAMINOPHEN 325 MG TAB PO PRN (10:00)
[2017-10-15] MEDS ORDERED: IBUPROFEN 200 MG TAB PO PRN (10:00)
--- NOTE | 2017-10-15 10:22 | Pharmacy Progress Note ---
Parenteral Nutrition Consult Date of Service October 15, 2017. [facility] Pharmacy was consulted on 10/14/17 to manage parenteral nutrition orders for this patient. Subjective The patient is currently on day 2 of peripheral parenteral nutrition for post- op ileus, s/p right hemicolectomy. Objective Height (Feet): 5 Height (Inches): 1.00 Weight (Kilograms): 83.000 Diet: NPO Intake & Output (Last 72 Hr): 10/14/17 10/15/17 10/16/17 08:00 08:00 08:00 Intake Total 2233 ml 2349 ml Output Total 1175 ml 1975 ml Balance 1058 ml 374 ml Laboratory Data (Last 24 Hr): Test 10/15/17 06:48 Albumin 2.5 gm/dl (3.4-5.0) Blood Urea Nitrogen 17 mg/dl (7-18) Calcium Level 9.0 mg/dl (8.5-10.1) Carbon Dioxide Level 27 mmol/L (21-32) Chloride Level 99 mmol/L (98-107) Creatinine 0.56 mg/dl (0.60-1.20) Magnesium Level 2.1 mg/dl (1.8-2.4) Phosphorus Level 2.2 mg/dl (2.5-4.9) Potassium Level 3.4 mmol/L (3.5-5.1) Random Glucose 131 mg/dl (70-99) Sodium Level 133 mmol/L (136-145) Triglycerides Level 163 mg/dl (0-150) Nutrition Assessment Please refer to the Notes section of the EMR for the most recent education and training manager note. Plan For day # 2 of PN administration, the following will be ordered: Macronutrients Amino acids 80 grams/day Dextrose 125 grams/day Lipids 30 grams/day Micronutrients Sodium chloride 60 mEq Potassium phosphate 30 mMol Magnesium sulfate 4.06 mEq Multivitamins 10 mL Trace Elements 1 mL Also ordered electrolyte replacement outside of the PPN; KPhos 18 mmol to be given @ 1030 (contains 26.4 sofia potassium). Total volume 2800 mL to be infused over 24 hrs will provide 1045 kcal/day Final osmolarity 596 mOsm/L (maximum for PPN is 600 mOsm/L) Unable to maximize macronutrients due to osmolarity limits with peripheral access. Labs, as indicated, will be ordered per protocol Pharmacy will continue to follow and adjust parenteral nutrition orders on a daily basis. Thank you for allowing us to participate in the care of this patient.
[2017-10-15] MEDS ORDERED: POTASSIUM PHOSPHATE INJ 18 MMOL in SODIUM CHLORIDE 0.9% 500ML 500 ML IV ONE (10:30)
--- NOTE | 2017-10-15 11:32 | DIAGNOSTIC IMAGING REPORT ---
ABDOMEN 2VIEW W/PA CHEST RTN HISTORY: 87 years-old Female s/p right colectomy, ileus acute ileus COMPARISON: Acute abdominal series radiographs 10/13/2017, CT abdomen and pelvis 10/14/2017 TECHNIQUE: PA view the chest with erect and supine views of the abdomen FINDINGS: Small bilateral pleural effusions with subsegmental bibasilar opacities suggesting atelectasis. The cardiac silhouette is mildly enlarged. Atherosclerosis of the aorta. No pneumothorax or overt pulmonary edema. Degenerative changes of the shoulders and spine. No pneumoperitoneum or pneumatosis identified. Mildly dilated loops of bowel within the central abdomen with air-fluid levels are redemonstrated suggesting small bowel loops measuring up to 4.5 cm on the left. These findings appear unchanged. Surgical lauren from prior laparotomy. No urolith identified. Bilateral hip arthroplasties with left iliac stent graft redemonstrated. Cholelithiasis. IMPRESSION: 1. Persistent dilated loops of small bowel throughout the central abdomen suggesting postoperative ileus or alternatively small bowel traction. Follow-up recommended. 2. Cholelithiasis. 3. Small bilateral pleural effusions with bibasilar opacities suggesting compressive atelectasis. The above report was generated using voice recognition software. It may contain grammatical, syntax or spelling errors. Electronically signed by: Karan Hernandez M.D. 10/15/2017 11:30 AM Dictated Date/Time: 10/15/2017 11:27 AM
--- NOTE | 2017-10-15 11:48 | Clinical Documentation Query ---
CLINICAL DOCUMENTATION QUERY As the medical record stands, Postoperative ileus is documented. Code assignment is based on the provider's documentation of the relationship between the condition and the care or procedure. The guideline extends to any complications of care, regardless of the chapter the code is located in. It is important to note that not all conditions that occur during or following medical care or surgery are classified as complications. There must be a [id number] relationship between the care provided and the condition, and an indication in the documentation that it is a complication. Query the provider for clarification, if the complication is not clearly documented. In your clinical opinion is this patient being managed for: The ileus is a result of the surgery, but I strongly disagree that an ileus following major abdominal surgery is a "complication". ( x ) Postoperative ileus (tied directly to the surgery itself) ( ) Incidental ileus (Not a complication of the surgery) Please clarify and document your clinical opinion in the progress notes and discharge summary. Terms such as "probable", "suspected", "likely", "questionable", "possible", or "still to be ruled out" are acceptable. IF IN AGREEMENT, YOU MUST DOCUMENT ABOVE DIAGNOSTIC STATEMENT IN DAILY PROGRESS NOTES AND DISCHARGE SUMMARY. This document is not part of the patient's record. Thank You, Gerald Wise RN [phone] & [facility]
--- NOTE | 2017-10-15 12:18 | Progress Note ---
Subjective Date of Service: October 15, 2017. Subjective the pt states she did have a small bowel movement this am, she has improved abdominal pain and nausea. Is on PPN for nutrition and surgery is handling advancing diet Review of Systems Constitutional: + weakness, + fatigue, No fever, No chills Respiratory: No cough, No sputum, No shortness of breath, No dyspnea on exertion Cardiac: No chest pain, No edema Abdomen: + pain, + nausea, + constipation, No vomiting, No diarrhea Musculoskeletal: No joint pain, No muscle pain Female : No dysuria, No urinary frequency Psychiatric: No depression symptoms, No anhedonism Objective Vital Signs Date Time Temp Pulse Resp B/P (MAP) Pulse Ox O2 Delivery O2 Flow Rate FiO2 10/15/17 08:44 92 Room Air 10/15/17 07:40 36.9 69 16 136/78 (97) 92 Room Air 10/15/17 07:15 Room Air 10/14/17 23:50 Room Air 10/14/17 23:30 37.1 72 16 145/63 (90) 92 Room Air 10/14/17 16:00 Room Air 10/14/17 15:59 36.8 68 18 154/74 (100) 94 Room Air Physical Exam General Appearance: WD/WN, + mild distress Eyes: normal inspection, sclerae normal Neck: supple, no JVD Respiratory/Chest: chest non-tender, lungs clear, normal breath sounds Cardiovascular: regular rate, rhythm, no murmur Abdomen: soft, + abnormal bowel sounds, + guarding Extremities: no pedal edema, no calf tenderness Laboratory Results Last 24 Hours Test 10/14/17 23:45 10/15/17 06:48 Bedside Glucose 128 mg/dl Sodium Level 133 mmol/L Potassium Level 3.4 mmol/L Chloride Level 99 mmol/L Carbon Dioxide Level 27 mmol/L Anion Gap 7.0 mmol/L Blood Urea Nitrogen 17 mg/dl Creatinine 0.56 mg/dl Est Creatinine Clear Calc Drug Dose 71.7 ml/min Estimated GFR () 98.5 Estimated GFR (Non- 85.0 BUN/Creatinine Ratio 30.2 Random Glucose 131 mg/dl Calcium Level 9.0 mg/dl Phosphorus Level 2.2 mg/dl Magnesium Level 2.1 mg/dl C-Reactive Protein 10.60 mg/dl Albumin 2.5 gm/dl Triglycerides Level 163 mg/dl Assessment and Plan Medical consult note 87 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 Ibrahim on 10/07 for medical management. Infiltrative Adenocarcinoma S/P R Hemicolectomy/Lysis of Adhesions/End-to-End Ileocolonic Anastomosis--CT 10/14 shows ileus and consideration of anastomotic edema General surgery directing advancing of diet Acute blood loss anemia in postop setting, this has been up and down, repeat h/ h in afternoon is stable in the 7's pt wishes to hold on transfusion unless symptomatic Paroxysmal Atrial Fibrillation--remains stable, currently in SR - Eliquis on hold given surgery - should be resumed when taking well, caution currently with anemia but is on post op lovenox - Continue Diltiazem 240 mg daily Peripheral Edema, minimal HTN-diltiazem and hctz Reactive Airway Disease- stable Mometasone Furoate 1 puff BID Nutation is on day 2 of PPN and will correct electrolyte abnormalities via ppn
[2017-10-15 15:22] VITALS: BP 149/76; PULSE 65; TEMP 37.2; O2SAT 92
[2017-10-15] MEDS ORDERED: CUSTOM PERIPHERAL PN 1 BAG IV SCH (16:00)
[2017-10-15] MEDS: APIXABAN 2.5 MG TAB PO SCH (20:32)
[2017-10-15 22:56] VITALS: BP 156/65; PULSE 65; TEMP 36.6; O2SAT 93
[2017-10-16 07:16] LABS: CALCIUM 9.1 mg/dl (8.5-10.1); CREATININE 0.67 mg/dl (0.60-1.20); PHOSPHORUS 2.8 mg/dl (2.5-4.9); POTASSIUM 3.5 mmol/L (3.5-5.1)
[2017-10-16 07:33] VITALS: BP 157/73; PULSE 68; TEMP 37.1; O2SAT 94
--- NOTE | 2017-10-16 07:42 | Surgery Progress Note ---
Surgery Progress Note Date of Service October 16, 2017. Subjective + feeling well, + ambulating (OOB to chair), + bowel movement (reports loose BM) , + pain controlled, + diet (Tolerated latvian ice last night and a popsicle this AM. ), No complaints, No flatus, No nausea, No vomiting Objective Vital Signs: Date Time Temp Pulse Resp B/P (MAP) Pulse Ox O2 Delivery O2 Flow Rate FiO2 10/15/17 22:56 36.6 65 18 156/65 (95) 93 Room Air 10/15/17 19:10 Room Air 10/15/17 16:20 Room Air 10/15/17 15:22 37.2 65 18 149/76 (100) 92 Room Air 10/15/17 08:44 92 Room Air 10/15/17 07:40 36.9 69 16 136/78 (97) 92 Room Air General Appearance: WD/WN, no apparent distress Head: normocephalic, atraumatic Respiratory/Chest: no respiratory distress, no accessory muscle use Abdomen: non tender, non distended, soft, no organomegaly Incision(s): clean, dry, intact Laboratory Results: Results Past 24 Hours Test 10/15/17 14:32 10/15/17 17:50 10/16/17 00:03 10/16/17 06:17 Range/Units Bedside Glucose 122 154 130 128 70-90 mg/dl Test 10/16/17 06:20 Range/Units Sodium Level 134 136-145 mmol/L Potassium Level 3.5 3.5-5.1 mmol/L Chloride Level 102 98-107 mmol/L Carbon Dioxide Level 26 21-32 mmol/L Anion Gap 6.0 3-11 mmol/L Blood Urea Nitrogen 14 7-18 mg/dl Creatinine 0.67 0.60-1.20 mg/dl Est Creatinine Clear Calc Drug Dose 59.7 ml/min Estimated GFR () 92.9 Estimated GFR (Non- 80.2 BUN/Creatinine Ratio 21.0 10-20 Random Glucose 114 70-99 mg/dl Calcium Level 9.1 8.5-10.1 mg/dl Phosphorus Level 2.8 2.5-4.9 mg/dl Magnesium Level 2.1 1.8-2.4 mg/dl Triglycerides Level 187 0-150 mg/dl Assessment & Plan POD #9 s/p laparoscopic right hemicolectomy Doing well, Abdomen soft, non-distended. Tolerated [place] ice and popsicle last night and this AM. no N/V. Feels more hungry now. Urinating without issue. KUB yesterday shows persistent dilated small bowel loops - likely post-op ileus. +Flatus, Reports multiple loose BM yesterday and this AM. Will start clears this AM, patient advised to go slowly. Continue PPN, IV fluids, IV phenergan. OOB as tolerated. Please contact with questions or concerns.
[2017-10-16] MEDS: MOMETASONE FUROATE 14 PUFF/1 INHALER INH SCH ×2 (09:15→21:10)
[2017-10-16] MEDS: HYDROCHLOROTHIAZIDE 25 MG TAB PO SCH (09:16)
[2017-10-16] MEDS: APIXABAN 2.5 MG TAB PO SCH ×2 (09:16→21:09)
[2017-10-16] MEDS: DILTIAZEM HCL 120 MG EXT REL CAP PO SCH (09:16)
[2017-10-16] MEDS ORDERED: RXC5 PO (09:25)
--- NOTE | 2017-10-16 09:27 | Discharge Instructions ---
Discharge Instructions Date of Service October 16, 2017. Admission Reason for Admission: Right Colon Cancer Discharge Discharge Diagnosis / Problem: right colectomy Discharge Goals Goal(s): Improve nutritional status Activity Recommendations Activity Limitations: as noted below Lifting Limitations: no more than 10 pounds Shower/Bathe: no limitations . Instructions / Follow-Up Instructions / Follow-Up Dr. Ibrahim within 1 week for staple removal, call [phone] to schedule or if you have any questions You may take Tylenol or ibuprofen between or instead on oxycodone for pain Current Hospital Diet Patient's current hospital diet: Clear Liquid Diet Discharge Diet Recommended Diet: Low Fiber Diet Procedures Procedures Performed: laparoscopic hand assisted right hemicolectomy; laparoscopic lysis of adhesions, extensive; side to side functional end to end ileocolonic anastomosis Pending Studies Studies pending at discharge: no Laboratory Results Lipid Panel Test 10/16/17 06:20 Range/Units Triglycerides Level 187 H 0-150 mg/dl Medical Emergencies . Who to Call and When: Medical Emergencies: If at any time you feel your situation is an emergency, please call 911 immediately. . Non-Emergent Contact Non-Emergency issues call your: Surgeon Call Non-Emergent contact if: you have a fever, temperature is above 101.5, your pain is not controlled, wound has increased drainage, wound has increased redness, wound has increased pain, you have any medication questions . "Provider Documentation" section prepared by Randell Goins. .
[2017-10-16] MEDS ORDERED: CUSTOM PERIPHERAL PN 1 BAG IV SCH (16:00)
[2017-10-16 16:16] VITALS: BP 122/70; PULSE 72; TEMP 37.2; O2SAT 94
[2017-10-16] MEDS ORDERED: CONSULT PHARMACY STA (16:45)
--- NOTE | 2017-10-16 16:53 | Progress Note ---
Subjective Date of Service: October 16, 2017. Subjective this pt feels much better did have good bowel movements. she has improved abdominal pain. Review of Systems Constitutional: No fever, No chills Respiratory: No cough, No wheezing Cardiac: No chest pain, No PND, No edema Abdomen: + nausea, + diarrhea, No pain, No vomiting Female : No dysuria, No urinary frequency Psychiatric: No depression symptoms, No anhedonism Objective Vital Signs Date Time Temp Pulse Resp B/P (MAP) Pulse Ox O2 Delivery O2 Flow Rate FiO2 10/16/17 16:16 37.2 72 16 122/70 (87) 94 Room Air 10/16/17 07:50 Room Air 10/16/17 07:33 37.1 68 16 157/73 (101) 94 Room Air 10/15/17 22:56 36.6 65 18 156/65 (95) 93 Room Air 10/15/17 19:10 Room Air Physical Exam General Appearance: WD/WN, + mild distress Eyes: normal inspection, sclerae normal Respiratory/Chest: chest non-tender, lungs clear, normal breath sounds Cardiovascular: regular rate, rhythm, no murmur Abdomen: normal bowel sounds, soft, + distended, + tenderness Extremities: no pedal edema, no calf tenderness Neurologic/Psychiatric: alert, oriented x 3 Laboratory Results Last 24 Hours Test 10/15/17 17:50 10/16/17 00:03 10/16/17 06:17 10/16/17 06:20 Bedside Glucose 154 mg/dl 130 mg/dl 128 mg/dl Sodium Level 134 mmol/L Potassium Level 3.5 mmol/L Chloride Level 102 mmol/L Carbon Dioxide Level 26 mmol/L Anion Gap 6.0 mmol/L Blood Urea Nitrogen 14 mg/dl Creatinine 0.67 mg/dl Est Creatinine Clear Calc Drug Dose 59.7 ml/min Estimated GFR () 92.9 Estimated GFR (Non- 80.2 BUN/Creatinine Ratio 21.0 Random Glucose 114 mg/dl Calcium Level 9.1 mg/dl Phosphorus Level 2.8 mg/dl Magnesium Level 2.1 mg/dl Triglycerides Level 187 mg/dl Assessment and Plan Medical consult note 87 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 Ibrahim on 10/07 for medical management. Infiltrative Adenocarcinoma S/P R Hemicolectomy/Lysis of Adhesions/End-to-End Ileocolonic Anastomosis--CT 10/14 had shown ileus and consideration of anastomotic edema General surgery advancing of diet Acute blood loss anemia in postop setting, pt wishes to hold on transfusion unless symptomatic Paroxysmal Atrial Fibrillation--remains stable, currently in SR - Eliquis on hold given surgery - should be resumed when taking well, caution currently with anemia but is on post op lovenox - Continue Diltiazem 240 mg daily Peripheral Edema, minimal HTN-diltiazem and hctz Reactive Airway Disease- stable Mometasone Furoate 1 puff BID since diet is advancing will have PPN stop after this bag
[2017-10-16 23:34] VITALS: BP 155/70; PULSE 62; TEMP 36.7; O2SAT 95
[2017-10-17 07:53] VITALS: BP 141/66; PULSE 69; TEMP 36.8; O2SAT 95
[2017-10-17 08:40] LABS: HEMATOCRIT 23.9 % (37-47); HEMOGLOBIN 7.5 g/dL (12.0-16.0)
[2017-10-17] MEDS: MOMETASONE FUROATE 14 PUFF/1 INHALER INH SCH ×2 (08:45→21:16)
[2017-10-17] MEDS: DILTIAZEM HCL 120 MG EXT REL CAP PO SCH (08:46)
[2017-10-17] MEDS: HYDROCHLOROTHIAZIDE 25 MG TAB PO SCH (08:46)
[2017-10-17] MEDS: APIXABAN 2.5 MG TAB PO SCH ×2 (08:46→21:16)
[2017-10-17 09:10] LABS: CALCIUM 8.7 mg/dl (8.5-10.1); CREATININE 0.59 mg/dl (0.60-1.20); PHOSPHORUS 2.9 mg/dl (2.5-4.9); POTASSIUM 3.5 mmol/L (3.5-5.1)
--- NOTE | 2017-10-17 09:42 | Surgery Progress Note ---
Surgery Progress Note Date of Service October 17, 2017. Subjective Post OP Day: 10 + feeling well, + bowel movement, + flatus, + diet (taking po OK), No nausea, No vomiting Objective Vital Signs: Date Time Temp Pulse Resp B/P (MAP) Pulse Ox O2 Delivery O2 Flow Rate FiO2 10/17/17 07:53 36.8 69 18 141/66 (91) 95 Room Air 10/16/17 23:45 Room Air 10/16/17 23:34 36.7 62 16 155/70 (98) 95 Room Air 10/16/17 16:16 37.2 72 16 122/70 (87) 94 Room Air 10/16/17 15:45 Room Air General Appearance: WD/WN, no apparent distress Head: normocephalic, atraumatic Neck: supple, trachea midline Respiratory/Chest: lungs clear Cardiovascular: regular rate, rhythm, no gallop, no murmur Abdomen: normal bowel sounds, non tender, soft, + distended Incision(s): clean, dry, intact Extremities: non-tender, no pedal edema Laboratory Results: Results Past 24 Hours Test 10/16/17 12:02 10/16/17 17:57 10/16/17 23:50 10/17/17 05:51 Range/Units Bedside Glucose 127 135 126 119 70-90 mg/dl Test 10/17/17 08:09 Range/Units Hemoglobin 7.5 12.0-16.0 g/dL Hematocrit 23.9 37-47 % Sodium Level 136 136-145 mmol/L Potassium Level 3.5 3.5-5.1 mmol/L Chloride Level 104 98-107 mmol/L Carbon Dioxide Level 25 21-32 mmol/L Anion Gap 6.0 3-11 mmol/L Blood Urea Nitrogen 12 7-18 mg/dl Creatinine 0.59 0.60-1.20 mg/dl Est Creatinine Clear Calc Drug Dose 67.4 ml/min Estimated GFR () 96.9 Estimated GFR (Non- 83.6 BUN/Creatinine Ratio 20.4 10-20 Random Glucose 110 70-99 mg/dl Calcium Level 8.7 8.5-10.1 mg/dl Phosphorus Level 2.9 2.5-4.9 mg/dl Magnesium Level 2.0 1.8-2.4 mg/dl Assessment & Plan s/p R colectomy -ileus resolving -taking po better -loose stools -if does well possibly home in AM
--- NOTE | 2017-10-17 14:46 | Progress Note ---
Subjective Date of Service: October 17, 2017. Subjective pt feels improved but not ready to move to more substantial diet Review of Systems Constitutional: + weakness, + fatigue, No fever, No chills Cardiac: No chest pain, No orthopnea Abdomen: No pain, No nausea, No vomiting Neurologic: No memory loss, No weakness Psychiatric: No depression symptoms, No anhedonism Objective Vital Signs Date Time Temp Pulse Resp B/P (MAP) Pulse Ox O2 Delivery O2 Flow Rate FiO2 10/17/17 10:01 Room Air 10/17/17 07:53 36.8 69 18 141/66 (91) 95 Room Air 10/16/17 23:45 Room Air 10/16/17 23:34 36.7 62 16 155/70 (98) 95 Room Air 10/16/17 16:16 37.2 72 16 122/70 (87) 94 Room Air 10/16/17 15:45 Room Air Physical Exam General Appearance: WD/WN, + mild distress Eyes: normal inspection, sclerae normal Neck: supple, no JVD Respiratory/Chest: chest non-tender, lungs clear, normal breath sounds Cardiovascular: regular rate, rhythm, no murmur Abdomen: normal bowel sounds, non tender, soft Extremities: no pedal edema, no calf tenderness Neurologic/Psychiatric: alert, oriented x 3 Laboratory Results Last 24 Hours Test 10/16/17 17:57 10/16/17 23:50 10/17/17 05:51 10/17/17 08:09 Bedside Glucose 135 mg/dl 126 mg/dl 119 mg/dl Hemoglobin 7.5 g/dL Hematocrit 23.9 % Sodium Level 136 mmol/L Potassium Level 3.5 mmol/L Chloride Level 104 mmol/L Carbon Dioxide Level 25 mmol/L Anion Gap 6.0 mmol/L Blood Urea Nitrogen 12 mg/dl Creatinine 0.59 mg/dl Est Creatinine Clear Calc Drug Dose 67.4 ml/min Estimated GFR () 96.9 Estimated GFR (Non- 83.6 BUN/Creatinine Ratio 20.4 Random Glucose 110 mg/dl Calcium Level 8.7 mg/dl Phosphorus Level 2.9 mg/dl Magnesium Level 2.0 mg/dl Test 10/17/17 12:15 Bedside Glucose 129 mg/dl Assessment and Plan Medical consult note 87 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 Ibrahim on 10/07 for medical management. Infiltrative Adenocarcinoma S/P R Hemicolectomy/Lysis of Adhesions/End-to-End Ileocolonic Anastomosis--CT 10/14 had shown ileus and consideration of anastomotic edema Slowly advancing of diet Acute blood loss anemia in postop setting, pt wishes to hold on transfusion unless symptomatic Paroxysmal Atrial Fibrillation--remains stable, currently in SR - Eliquis on hold given surgery - should be resumed when taking well, caution currently with anemia but is on post op lovenox - Continue Diltiazem 240 mg daily Peripheral Edema, minimal HTN-diltiazem and hctz Reactive Airway Disease- stable Mometasone Furoate 1 puff BID since diet is advancing will have PPN stop after this bag
[2017-10-17 15:36] VITALS: BP 146/62; PULSE 69; TEMP 36.3; O2SAT 95
[2017-10-17] MEDS: ONDANSETRON INJ 8 MG in DEXTROSE 5% 50ML 50 ML IV PRN (18:54)
[2017-10-17 23:20] VITALS: BP 130/77; PULSE 62; TEMP 36.7; O2SAT 94
[2017-10-18 07:24] VITALS: BP 142/66; PULSE 75; TEMP 36.6; O2SAT 92
[2017-10-18 07:25] LABS: CREATININE 0.7 mg/dl (0.60-1.20)
[2017-10-18] MEDS: APIXABAN 2.5 MG TAB PO SCH ×2 (08:54→22:01)
[2017-10-18] MEDS: MOMETASONE FUROATE 14 PUFF/1 INHALER INH SCH ×2 (08:54→21:15)
[2017-10-18] MEDS: DILTIAZEM HCL 120 MG EXT REL CAP PO SCH (08:54)
[2017-10-18] MEDS: HYDROCHLOROTHIAZIDE 25 MG TAB PO SCH (08:54)
--- NOTE | 2017-10-18 11:10 | Surgery Progress Note ---
Surgery Progress Note Date of Service October 18, 2017. Subjective Post OP Day: 11 + feeling well (better thia AM , rough day), + complaints (solid food no ttolerated well), + ambulating, + bowel movement, + flatus, + nausea, + vomiting (one epiosode better now), + diet (back to clears, agree with her better) Objective Vital Signs: Date Time Temp Pulse Resp B/P (MAP) Pulse Ox O2 Delivery O2 Flow Rate FiO2 10/18/17 08:47 Room Air 10/18/17 07:24 36.6 75 20 142/66 (91) 92 Room Air 10/18/17 00:40 Room Air 10/17/17 23:20 36.7 62 16 130/77 (94) 94 Room Air 10/17/17 16:30 Room Air 10/17/17 15:36 36.3 69 16 146/62 (90) 95 Room Air General Appearance: WD/WN, no apparent distress Head: normocephalic, atraumatic Neck: supple, trachea midline Respiratory/Chest: lungs clear Cardiovascular: regular rate, rhythm Abdomen: normal bowel sounds, non tender, soft, + distended (mild) Incision(s): clean, dry, intact Extremities: non-tender, no pedal edema Laboratory Results: Results Past 24 Hours Test 10/17/17 12:15 10/17/17 17:58 10/17/17 20:25 10/18/17 06:39 Range/Units Bedside Glucose 129 123 110 70-90 mg/dl Creatinine 0.70 0.60-1.20 mg/dl Est Creatinine Clear Calc Drug Dose 56.8 ml/min Estimated GFR () 91.6 Estimated GFR (Non- 79.0 Assessment & Plan s/p R colectomy -back to clears -no N/V this AM -loose stools -ambulate
[2017-10-18 14:51] VITALS: BP 124/62; PULSE 69; TEMP 36.7; O2SAT 94
[2017-10-18 20:00] VITALS: O2SAT 94
[2017-10-18] MEDS ORDERED: NURSING VERBAL MED ORDER ONE (20:30)
[2017-10-18] MEDS: ONDANSETRON INJ 8 MG in DEXTROSE 5% 50ML 50 ML IV PRN (21:13)
[2017-10-18 22:51] VITALS: BP 134/70; PULSE 67; TEMP 37; O2SAT 94
[2017-10-19 06:25] LABS: HEMATOCRIT 25.6 % (37-47)
--- NOTE | 2017-10-19 07:08 | Surgery Progress Note ---
Surgery Progress Note Date of Service October 19, 2017. Subjective 87 y/o female s/p lap right hemicolectomy 07 October with post op ileus. She was tolerating fulls on Thursday but had some emesis over weekend, back to clears. Overnight she had 2 large liquid bm's with flatus, feels much better. She did receive zofran for nausea, no emesis. Objective Vital Signs: Date Time Temp Pulse Resp B/P (MAP) Pulse Ox O2 Delivery O2 Flow Rate FiO2 10/18/17 23:38 Room Air 10/18/17 22:51 37.0 67 14 134/70 (91) 94 Room Air 10/18/17 20:00 94 Room Air 2.0 10/18/17 14:51 36.7 69 18 124/62 (82) 94 Room Air 10/18/17 08:47 Room Air 10/18/17 07:24 36.6 75 20 142/66 (91) 92 Room Air General Appearance: WD/WN, no apparent distress Abdomen: normal bowel sounds, non tender, non distended, soft, no organomegaly , no pulsatile mass Incision(s): clean, dry, intact, no erythema, no drainage Laboratory Results: Results Past 24 Hours Test 10/19/17 06:15 Range/Units Hemoglobin 8.0 12.0-16.0 g/dL Hematocrit 25.6 37-47 % Assessment & Plan POD#12 laparoscopic right hemicolectomy with post op ileus. Continue clears this morning, will advance to fulls if tolerating protein shakes TIDWM ambulation, OOBTC check lytes remove lauren and place steris later today If any further emesis or nausea, may need to repeat imaging
[2017-10-19 07:11] VITALS: BP 125/67; PULSE 60; TEMP 36.4; O2SAT 96
[2017-10-19 07:33] LABS: ALBUMIN 2.6 gm/dl (3.4-5.0); CALCIUM 8.9 mg/dl (8.5-10.1); CREATININE 0.69 mg/dl (0.60-1.20); POTASSIUM 3.6 mmol/L (3.5-5.1); TOTAL PROTEIN 5.9 gm/dl (6.4-8.2)
[2017-10-19] MEDS: MOMETASONE FUROATE 14 PUFF/1 INHALER INH SCH ×2 (09:10→21:00)
[2017-10-19] MEDS: APIXABAN 2.5 MG TAB PO SCH ×2 (09:11→21:01)
[2017-10-19] MEDS: HYDROCHLOROTHIAZIDE 25 MG TAB PO SCH (09:11)
[2017-10-19] MEDS: DILTIAZEM HCL 120 MG EXT REL CAP PO SCH (09:12)
[2017-10-19 14:55] VITALS: BP 120/60; PULSE 59; TEMP 36.9; O2SAT 95
[2017-10-19] MEDS ORDERED: BOOST VANILLA PO SCH (18:00)
[2017-10-19 23:20] VITALS: BP 151/77; PULSE 70; TEMP 36.9; O2SAT 95
[2017-10-19] MEDS: ONDANSETRON INJ 8 MG in DEXTROSE 5% 50ML 50 ML IV PRN (23:51)
[2017-10-20 06:56] VITALS: BP 126/88; PULSE 62; TEMP 36.6; O2SAT 97
[2017-10-20 07:42] VITALS: BP 121/73; PULSE 63; TEMP 36.4; O2SAT 92
[2017-10-20 08:50] VITALS: O2SAT 92
--- NOTE | 2017-10-20 08:52 | Surgery Progress Note ---
Surgery Progress Note Date of Service October 20, 2017. Subjective + bowel movement (3 today, loose), + nausea (had some last night) Objective Vital Signs: Date Time Temp Pulse Resp B/P (MAP) Pulse Ox O2 Delivery O2 Flow Rate FiO2 10/20/17 07:42 36.4 63 16 121/73 (89) 92 Room Air 10/20/17 06:56 36.6 62 18 126/88 (101) 97 Room Air 10/19/17 23:34 Room Air 10/19/17 23:20 36.9 70 18 151/77 (101) 95 Room Air 10/19/17 15:50 Room Air 10/19/17 14:55 36.9 59 20 120/60 (80) 95 Room Air Abdomen: non tender, non distended, soft Assessment & Plan s/p LHA right colectomy post op ileus tolerating full liquids, wants to try soft diet plan to keep here today
[2017-10-20] MEDS: BOOST VANILLA PUDDING CUP PO SCH ×2 (09:00→17:52)
[2017-10-20] MEDS: APIXABAN 2.5 MG TAB PO SCH ×2 (09:20→21:08)
[2017-10-20] MEDS: DILTIAZEM HCL 120 MG EXT REL CAP PO SCH (09:20)
[2017-10-20] MEDS: MOMETASONE FUROATE 14 PUFF/1 INHALER INH SCH ×2 (09:21→21:08)
[2017-10-20] MEDS: HYDROCHLOROTHIAZIDE 25 MG TAB PO SCH (09:21)
[2017-10-20 15:17] VITALS: BP 120/52; PULSE 57; TEMP 36.7; O2SAT 95
[2017-10-20 23:20] VITALS: BP 138/59; PULSE 63; TEMP 36.7; O2SAT 96
[2017-10-21 06:01] LABS: HEMATOCRIT 25.3 % (37-47); HEMOGLOBIN 8.2 g/dL (12.0-16.0)
[2017-10-21 06:44] LABS: CREATININE 0.66 mg/dl (0.60-1.20)
[2017-10-21 07:44] VITALS: BP 120/73; PULSE 71; TEMP 36.5; O2SAT 96
[2017-10-21 07:47] VITALS: O2SAT 96
--- NOTE | 2017-10-21 08:00 | Surgery Progress Note ---
Surgery Progress Note Date of Service October 21, 2017. Subjective + feeling well, + bowel movement (not as watery), + diet (soft but only a few bites), No nausea Objective Vital Signs: Date Time Temp Pulse Resp B/P (MAP) Pulse Ox O2 Delivery O2 Flow Rate FiO2 10/21/17 07:47 96 10/21/17 07:44 36.5 71 16 120/73 (89) 96 Room Air 10/20/17 23:20 36.7 63 18 138/59 (85) 96 Room Air 10/20/17 19:30 Room Air 10/20/17 15:45 Room Air 10/20/17 15:17 36.7 57 16 120/52 (74) 95 Room Air 10/20/17 08:50 92 Room Air Abdomen: non distended, soft Laboratory Results: Results Past 24 Hours Test 10/21/17 05:40 Range/Units Hemoglobin 8.2 12.0-16.0 g/dL Hematocrit 25.3 37-47 % Creatinine 0.66 0.60-1.20 mg/dl Est Creatinine Clear Calc Drug Dose 60.3 ml/min Estimated GFR () 93.4 Estimated GFR (Non- 80.6 Assessment & Plan s/p LHA right colectomy post op ileus resolved continue soft diet, protein supplements recheck later today
[2017-10-21] MEDS: BOOST VANILLA PUDDING CUP PO SCH (09:00)
[2017-10-21] MEDS: MOMETASONE FUROATE 14 PUFF/1 INHALER INH SCH (09:07)
[2017-10-21] MEDS: APIXABAN 2.5 MG TAB PO SCH (09:07)
[2017-10-21] MEDS: DILTIAZEM HCL 120 MG EXT REL CAP PO SCH (09:08)
[2017-10-21] MEDS: HYDROCHLOROTHIAZIDE 25 MG TAB PO SCH (09:08)
[2017-10-21] MEDS ORDERED: ONDA4TAB65 PO (10:26)
[2017-10-21 13:37] VITALS: BP 120/73; PULSE 71; TEMP 36.5; O2SAT 96
== END 2017-10-21 14:23 | disposition home or self-care (01) | DRG 330 ==
LOC: C.ACU 05:01 → C.2E 12:51 → ENRESERV 13:37 → C.MSW 10-09 10:07 → EDBEDREQ 10-09 10:28 → EDBEDREQSVC 10-09 10:28 → ENRESERV 10-09 11:10
PROVIDERS: ADMIT Surgery; ATTEND Surgery
PROC: 0DTB0ZZ Resection of Ileum, Open Approach (ICD-10-PCS; principal; 2017-10-07 07:15)
PROC: 0D1 Gastrointestinal System, Bypass (ICD-10-PCS; principal; 2017-10-07 07:15)
DX: C18.2 Malignant neoplasm of ascending colon (principal); N39.0 Urinary tract infection, site not specified; D62 Acute posthemorrhagic anemia; K91.89 Other postprocedural complications and disorders of digestive system; G47.30 Sleep apnea, unspecified; I10 Essential (primary) hypertension; E66.9 Obesity, unspecified; I48.0 Paroxysmal atrial fibrillation; R60.9 Edema, unspecified; J45.909 Unspecified asthma, uncomplicated; Z96.641 Presence of right artificial hip joint; Z79.01 Long term (current) use of anticoagulants; Z85.828 Personal history of other malignant neoplasm of skin; Z68.33 Body mass index [BMI] 33.0-33.9, adult; Z80.0 Family history of malignant neoplasm of digestive organs

== ENCOUNTER → 2017-12-19 | Outpatient (CLI) | payer OTHER ==
[~2017-12-19] MED LIST changes: -COEN1CAP28 PO; -ERYTTAB PO; -NEOM500T PO; -OMEG10007 PO; +ONDA4TAB46 PO
== END | disposition home or self-care (01) ==
LOC: C.LABSPEC 08:49
PROVIDERS: ATTEND Internal Medicine
DX: A04.72 Enterocolitis due to Clostridium difficile, not specified as recurrent (principal)

== ENCOUNTER → 2018-01-04 | Outpatient (CLI) | payer OTHER ==
[2018-01-04 15:09] LABS: BASO % 0.6 %; BASO ABS # 0.05 K/uL (0-0.2); EOS % 1.8 %; EOS ABS # 0.15 K/uL (0-0.5); HEMATOCRIT 32.1 % (37-47); HEMOGLOBIN 9.9 g/dL (12.0-16.0); LYMPH % 23.4 %; LYMPH ABS # 1.94 K/uL (1.2-3.4); MEAN CELL VOLUME 77.3 fL (80-100); MEAN CORPUSCULAR HEMOGLOBIN 23.9 pg (25-34); MEAN CORPUSCULAR HGB CONC 30.8 g/dl (32-36); MEAN PLATELET VOLUME 9.8 fL (7.4-10.4); MONO % 8.8 %; MONO ABS # 0.73 K/uL (0.11-0.59); NEUT % 65.4 %; NEUT ABS # 5.41 K/uL (1.4-6.5); PLATELET COUNT 347 K/uL (130-400); RED CELL DISTRIBUTION WIDTH CV 20.6 % (11.5-14.5); RED CELL DISTRIBUTION WIDTH SD 58.8 fL (36.4-46.3); WHITE BLOOD COUNT 8.28 K/uL (4.8-10.8)
[2018-01-04 15:39] LABS: ALBUMIN 3.3 gm/dl (3.4-5.0); ALKALINE PHOSPHATASE 81 U/L (45-117); ALT/SGPT 23 U/L (12-78); AST/SGOT 19 U/L (15-37); BLOOD UREA NITROGEN 14 mg/dl (7-18); CALCIUM 9.3 mg/dl (8.5-10.1); CARBON DIOXIDE 21 mmol/L (21-32); CREATININE 0.72 mg/dl (0.60-1.20); GLUCOSE 86 mg/dl (70-99); POTASSIUM 3.7 mmol/L (3.5-5.1); SODIUM 137 mmol/L (136-145); TOTAL PROTEIN 6.8 gm/dl (6.4-8.2)
== END | disposition home or self-care (01) ==
LOC: C.LAB1850 14:05
PROVIDERS: ATTEND Physician Assistant
DX: M79.89 Other specified soft tissue disorders (principal); A04.72 Enterocolitis due to Clostridium difficile, not specified as recurrent

== ENCOUNTER → 2018-01-05 | Outpatient (CLI) | payer OTHER | END | disposition home or self-care (01) | LOC: C.LAB1850 08:49 | PROVIDERS: ATTEND Physician Assistant | DX: M79.89 Other specified soft tissue disorders (principal); A04.72 Enterocolitis due to Clostridium difficile, not specified as recurrent ==